=== PATIENT | female | born 1990 | race Two or more races ===

== ENCOUNTER → 2017-12-24 | Emergency (ER) | payer SELFPAY ==
[~2017-12-24] VITALS: Ht 157.5 cm; Wt 63.5 kg
[2017-12-24 08:24] VITALS: BP 145/93
[2017-12-24 08:32] VITALS: BP 145/93
--- NOTE | 2017-12-24 08:44 | Emergency Room Report ---
History of Present Illness General Chief Complaint: Alcohol Intoxication Source: Patient, EMS Present Illness HPI Pt. was at a coffee shop acting "weird" so passerby called 911 and brought in by firefighters. Pt. states she "drank" meth. She is alert and oriented and does not want to stay in ED. Pt. denies any complaint, denies feeling suicidal, homicidal, says she is fine. Denies any psych dz. No recent hosp. no meds. No trauma, no fever, no shortness of breath, no travel history, no leg swelling. no chest pain, no diaphoresis, no exertional complaints, no nausea, no vomiting , no diarrhea, no abdominal pain. Tolerating po fine, normal urinary output, normal bm. No syncope, LOC, dizziness, lightheadedness, headache. No recent surgery. No oral contraceptive use. Allergies: Coded Allergies: DIVALPROEX SODIUM (Verified Allergy, Unknown, 12/24/17) IBUPROFEN (Verified Allergy, Unknown, 12/24/17) TRAMADOL (Verified Allergy, Unknown, 12/24/17) Patient History Last Menstrual Period: 11/20/17 Nursing Documentation-[facility] Past Medical History: No Stated History Review of Systems Constitutional: Reports: no symptoms Eye: Reports: no symptoms ENT: Reports: no symptoms Respiratory: Reports: no symptoms Cardiovascular: Reports: no symptoms Gastrointestinal: Reports: no symptoms Genitourinary: Reports: no symptoms Musculoskeletal: Reports: no symptoms Skin: Reports: no symptoms Psychiatric: Reports: no symptoms Neurological: Reports: no symptoms Endocrine: Reports: no symptoms Hematologic/Lymphatic: Reports: no symptoms Allergic: Reports: no symptoms Physical Exam Vital Signs Date Time Temp Pulse Resp B/P (MAP) Pulse Ox O2 Delivery O2 Flow Rate FiO2 12/24/17 08:03 98.4 115 20 145/93 98 Room Air 98.4 Sp02 EP Interpretation: reviewed, normal General Appearance: normal inspection, well appearing, no apparent distress, alert, GCS 15, non-toxic Head: normocephalic, atraumatic Eyes: bilateral eye normal inspection, bilateral eye PERRL, bilateral eye EOMI ENT: normal ENT inspection, hearing grossly normal, normal pharynx, no angioedema, normal voice, moist mucus membranes Neck: normal inspection, full range of motion, supple, no meningismus, no bony tend Respiratory: normal inspection, lungs clear, normal breath sounds, no rhonchi, no respiratory distress, no retraction, no accessory muscle use, no wheezing Cardiovascular #1: normal inspection, regular rate, rhythm, no edema Gastrointestinal: normal inspection, normal bowel sounds, non tender, soft, no mass, non-distended Musculoskeletal: gait/station normal, normal range of motion Neurologic: normal inspection, alert, oriented x3, responsive, motor strength/ tone normal Psychiatric: normal inspection, judgement/insight normal, memory normal Suicide Risk Assessment: Suicidal Ideation: No Had intent to initiate attempt: No Pt's plan for suicide attempt: No Has means to complete attempt: No Skin: normal inspection, normal color, no rash, warm/dry Medical Decision Making Diagnostic Impression: Primary Impression: Substance abuse ER Course pt ran out of ED dept. says she does not need to be here. she is not holdable, she is not gravely disabled. Last Vital Signs Date Time Temp Pulse Resp B/P (MAP) Pulse Ox O2 Delivery O2 Flow Rate FiO2 12/24/17 08:24 98.4 115 20 145/93 98 Room Air 98.4 Disposition: AGAINST MEDICAL ADVICE Condition: Stable Patient Instructions: Substance Use Disorder Brandon Larsen M.D. Dec 24, 2017 08:44
== END | disposition left against medical advice (07) ==
LOC: EDBD 08:22 → EMR 08:50
DX: F15.10 Other stimulant abuse, uncomplicated (principal); Z88.6 Allergy status to analgesic agent
CPT/HCPCS: 99284

== ENCOUNTER 2018-03-14 12:26 | Emergency (ER) | payer SELFPAY ==
[~2018-03-14] VITALS: Ht 160 cm; Wt 54.4 kg
--- NOTE | 2018-03-14 12:43 | Emergency Room Report ---
History of Present Illness General Chief Complaint: Behavioral Complaint Source: EMS Present Illness HPI Ms. Otero has hx of schizophenia and drug abuse who presents with psychotic behavior. Police was called to [facility] at [facility] and [place]. Patient undressed herself. Began to poor hair dye on head. Erratic behavior walking through the neighborhood. flight deck officer has taken care of patient at least 5 times. She has been on involuntary hold on previous occasion. Patient has pressured speech without intelligible thoughts. Allergies: Coded Allergies: DIVALPROEX SODIUM (Verified Allergy, Unknown, 12/24/17) IBUPROFEN (Verified Allergy, Unknown, 12/24/17) TRAMADOL (Verified Allergy, Unknown, 12/24/17) UNABLE TO ASSESS (Unverified , 03/14/18) Patient History Last Menstrual Period: unknown Nursing Documentation-[facility] Past Medical History: No History, Except For History Of Psychiatric Problem: Yes - Schizophrenia, substance abuse Review of Systems All Other Systems: limited Physical Exam Vital Signs Date Time Temp Pulse Resp B/P (MAP) Pulse Ox O2 Delivery O2 Flow Rate FiO2 03/14/18 12:24 110 20 137/87 99 Room Air Sp02 EP Interpretation: reviewed, normal General Appearance: other - pressured speech agitated Head: normocephalic, atraumatic, other - hair dye covering hair and forehead Eyes: bilateral eye normal inspection, bilateral eye PERRL ENT: moist mucus membranes Neck: full range of motion, supple Respiratory: chest non-tender, lungs clear, normal breath sounds, no rhonchi, no respiratory distress, no retraction, no accessory muscle use Cardiovascular #1: regular rate, rhythm, no edema, no gallop, no JVD, no murmur , no rub Gastrointestinal: normal inspection, normal bowel sounds, non tender, soft, no mass, no organomegaly Neurologic: alert, oriented - x 0 Psychiatric: other - pressured speech agitated screaming loudly Skin: normal inspection, normal color, no rash, warm/dry Medical Decision Making Diagnostic Impression: Primary Impression: Drug psychosis ER Course Ms. Otero has hx of mental illness ?schizophrenia vs bipolar disorder according to career law clerk who is familiar with patient. I appreciate the assistance of Dr. Noyola who evaluated patient. Dr. Noyola gave medication recommendations of haldol, ativan and benadryl. She also recommended physical restraints as needed until patient stabilizes. If patient is lucid and insightful once she awakens from sedation, Ms. Otero is appropriate for discharge according to Dr. Noyola who suspects drug induced psychosis. Patient admitted to methamphetamine use to police records clerk. My colleague will provide appropriate disposition. Last Vital Signs Date Time Temp Pulse Resp B/P (MAP) Pulse Ox O2 Delivery O2 Flow Rate FiO2 03/14/18 12:24 110 20 137/87 99 Room Air Signed Out To: Yolette Kohli MD Mar 14, 2018 12:43
[2018-03-14] MEDS ORDERED: LORazepam Inj 2mg/ml 1ml IM ONE (12:45)
[2018-03-14] MEDS ORDERED: Haloperidol 5mg/ml Inj IM ONE (12:45)
[2018-03-14] MEDS ORDERED: DiphenhydrAMINE 50mg/ml Inj IM ONE (12:45)
[2018-03-14 13:04] LABS: BASOPHILS % (AUTO) 1.3 % (0.0-2.0); EOSINOPHILS % (AUTO) 6.3 % (0.0-3.0); HEMATOCRIT 39.5 % (37.0-47.0); HEMOGLOBIN 13.2 G/DL (12.0-16.0); LYMPHOCYTES % (AUTO) 27.1 % (20.0-45.0); MEAN CORPUSCULAR VOLUME 83 FL (80-99); MONOCYTES % (AUTO) 7.7 % (1.0-10.0); NEUTROPHILS % (AUTO) 57.6 % (45.0-75.0); PLATELET COUNT 423 K/UL (150-450); RED BLOOD COUNT 4.78 M/UL (4.20-5.40); RED CELL DISTRIBUTION WIDTH 12.4 % (11.6-14.8); WHITE BLOOD COUNT 9.3 K/UL (4.8-10.8)
[2018-03-14 13:18] LABS: ANION GAP 11 mmol/L (5-15); BLOOD UREA NITROGEN 19 mg/dL (7-18); CALCIUM 8.8 MG/DL (8.5-10.1); CARBON DIOXIDE 21 MMOL/L (21-32); CHLORIDE 110 MMOL/L (98-107); CREATININE 0.8 MG/DL (0.55-1.30); POTASSIUM 3.7 MMOL/L (3.5-5.1); SODIUM 142 MMOL/L (136-145)
[2018-03-14 13:22] LABS: ALANINE AMINOTRANSFERASE 26 U/L (12-78); ALBUMIN 3.8 G/DL (3.4-5.0); ALBUMIN/GLOBULIN RATIO 1.1 (1.0-2.7); ALKALINE PHOSPHATASE 69 U/L (46-116); ASPARTATE AMINO TRANSFERASE 20 U/L (15-37); BILIRUBIN,TOTAL 0.3 MG/DL (0.2-1.0)
[2018-03-14 15:14] VITALS: BP 131/90
[2018-03-14 17:12] VITALS: BP 112/53
[2018-03-14 18:34] VITALS: BP 154/97
[2018-03-14 22:27] VITALS: BP 136/93
[2018-03-15 05:36] VITALS: BP 130/85
[2018-03-15 06:52] VITALS: BP 125/75
--- NOTE | 2018-03-15 14:15 | Consultation ---
DATE OF CONSULTATION: 03/14/2018 HISTORY OF PRESENT ILLNESS: The patient is a 28-year-old female who presented with psychotic symptoms she was found by the police dyeing her hair with car oil and and she was undressed. The police got her into the emergency room for danger to self. The patient suicidal ideation. No homicidal ideation. The patient is well developed and well nourished. The patient was in her sports bra and shorts. The patient was agitated, yelling, screaming. She admitted that she has been taking meth mixed with alcohol. PAST PSYCHIATRIC HISTORY: She has a history of psychotic disorder and has had psychiatric hospitalization per the officer. PAST MEDICAL HISTORY: None. ALLERGIES: Unknown. SUBSTANCE ABUSE HISTORY: Very extensive for alcohol, crystal meth, and other illicit drug use. MENTAL STATUS EXAMINATION: The patient is alert, however, confused, disoriented, and disorganized. She is not endorsing any suicidal or homicidal ideations. ASSESSMENT: AXIS I Substance-induced psychosis meth. AXIS II Deferred. AXIS III As above. AXIS IV Low. AXIS V 20. PLAN: The patient will be discharged after the . Mehdi Noyola M.D. DR: JENIFER JOB#: [id number] CC:
== END 2018-03-15 06:42 | disposition home or self-care (01) ==
LOC: EDBD 12:26 → EMR 14:53
DX: F19.959 Other psychoactive substance use, unspecified with psychoactive substance-induced psychotic disorder, unspecified (principal); Z78.1 Physical restraint status; F15.90 Other stimulant use, unspecified, uncomplicated
CPT/HCPCS: 36415; 80053; 80307; 81025; 85025; 96360; 96361; 96372; 99284; G0480; J1200; J1630; 80329

== ENCOUNTER 2019-07-09 13:14 | Inpatient (IN) | payer MEDICAID ==
[~2019-07-09] VITALS: Ht 157.5 cm; Wt 66.0 kg
[2019-07-09] VITALS (8 sets, daily range): BP systolic 117–144; BP diastolic 64–96
[2019-07-09] MEDS ORDERED: Metoclopramide 10mg/2ml Inj IVP ONE (13:30)
[2019-07-09] MEDS ORDERED: DiphenhydrAMINE 50mg/ml Inj IVP ONE (13:30)
[2019-07-09] MEDS ORDERED: Morphine Sulfate 4mg/ml Inj (IV USE ONLY) IVP ONE (13:30)
[2019-07-09] MEDS ORDERED: Piperacillin/Tazobactam 3.375 GM in NS 110 ML IVPB ONE (13:30)
--- NOTE | 2019-07-09 13:35 | NUR ---
ED Nurse Note: Pt went to ER via wheelchair d/t inflammed abscess on LT knee. Pt is AOx3, noted to be screaming, crying and appears to be restless DOCUMENT SPECIALIST. Noted HR 135. Placed on bed and gown; hooked to manager cardiac cath.
--- NOTE | 2019-07-09 13:40 | NUR ---
ED Nurse Note: Per pt she was in [facility] 6 days ago for 72 hours d/t DO detoxification; pt stated "i was given antipsychotic medications too. There was already redness on my knee that day but it wasn't as bad as this! It suddenly popped out today and bleed!"
[2019-07-09 13:52] LABS: HEMATOCRIT 36.9 % (37.0-47.0); HEMOGLOBIN 12.8 G/DL (12.0-16.0); MEAN CORPUSCULAR VOLUME 83 FL (80-99); PLATELET COUNT 437 K/UL (150-450); RED BLOOD COUNT 4.46 M/UL (4.20-5.40); RED CELL DISTRIBUTION WIDTH 11.2 % (11.6-14.8); WHITE BLOOD COUNT 20.7 K/UL (4.8-10.8)
[2019-07-09 14:00] LABS: APPEARANCE,URINE CLEAR; BILIRUBIN, URINE NEGATIVE (NEGATIVE); GLUCOSE, URINE (UA) NEGATIVE (NEGATIVE); KETONES,URINE 3+ (NEGATIVE); LEUKOCYTE ESTERASE ,URINE 1+ (NEGATIVE); NITRITE,URINE NEGATIVE (NEGATIVE); PH,URINE 6.5 (4.5-8.0); PROTEIN,URINE 2+ (NEGATIVE); UROBILINOGEN,URINE 4 MG/DL (0.0-1.0)
--- NOTE | 2019-07-09 14:04 | NUR ---
ED Nurse Note: X-ray on bedside.
[2019-07-09 14:13] LABS: COLOR,URINE YELLOW
--- NOTE | 2019-07-09 14:50 | NUR ---
ED Nurse Note: LACTATE REFLEX DONE.
[2019-07-09 14:55] LABS: ANION GAP 10 mmol/L (5-15); BLOOD UREA NITROGEN 16 mg/dL (7-18); CALCIUM 8.3 MG/DL (8.5-10.1); CARBON DIOXIDE 26 MMOL/L (21-32); CHLORIDE 108 MMOL/L (98-107); CREATININE 0.6 MG/DL (0.55-1.30); POTASSIUM 3.3 MMOL/L (3.5-5.1); SODIUM 144 MMOL/L (136-145)
[2019-07-09 15:00] LABS: ALANINE AMINOTRANSFERASE 36 U/L (12-78); ALBUMIN 2.7 G/DL (3.4-5.0); ALBUMIN/GLOBULIN RATIO 0.6 (1.0-2.7); ALKALINE PHOSPHATASE 76 U/L (46-116); ASPARTATE AMINO TRANSFERASE 25 U/L (15-37); BILIRUBIN,TOTAL 0.5 MG/DL (0.2-1.0); CREATINE KINASE 117 U/L (26-308)
--- NOTE | 2019-07-09 15:04 | Emergency Room Report ---
History of Present Illness General Chief Complaint: Lower Extremity Injury Source: Patient Present Illness HPI Patient presents with several days of swelling of her left knee. This is been going on and worsening for at least 6 days. She alleges that she was recently in the hospital. She received Zyprexa and believes that this might be an allergic reaction to the Zyprexa. She denies any trauma to the knee. She has had fevers and chills. She is unable to weight-bear at this time. She is quite anxious at this time. She denies suicidal or homicidal ideation. Patient admits to methamphetamine. She denies IV drug use. She is uncertain if she is at this time. No sore throat, chest pain, nausea, vomiting, diarrhea, dysuria, abdominal pain , shortness of breath, visual changes, dizziness, headache. Allergies: Coded Allergies: DIVALPROEX SODIUM (Verified Allergy, Unknown, 12/24/17) IBUPROFEN (Verified Allergy, Unknown, 12/24/17) TRAMADOL (Verified Allergy, Unknown, 12/24/17) UNABLE TO ASSESS (Unverified , 03/14/18) Patient History Past Medical History: see triage record Social History: Reports: drug use; Denies: smoking, alcohol use Social History Narrative Homeless Now: No Nursing Documentation-[facility] Past Medical History: No Stated History Review of Systems All Other Systems: negative except mentioned in HPI Physical Exam Vital Signs Date Time Temp Pulse Resp B/P (MAP) Pulse Ox O2 Delivery O2 Flow Rate FiO2 07/09/19 13:18 98.8 148 24 128/68 (88) 95 Room Air Sp02 EP Interpretation: reviewed, normal General Appearance: no apparent distress, alert, non-toxic, mild distress - Anxious and in pain, other - Slightly confused Head: normocephalic, atraumatic Eyes: bilateral eye PERRL, bilateral eye EOMI, bilateral eye Scleral Injection ENT: dry mucus membranes Neck: full range of motion, supple Respiratory: lungs clear, normal breath sounds Cardiovascular #1: no edema, tachycardia Cardiovascular #2: 2+ radial (R), 2+ dorsalis pedis (L) Gastrointestinal: normal inspection, normal bowel sounds, non tender, no mass, non-distended Genitourinary: no CVA tenderness Musculoskeletal: back normal, decreased range of motion, no calf tenderness, pelvis stable, tender, swelling Neurologic: alert, oriented, distal neuro normal, grossly normal Psychiatric: no suicidal/homicidal ideation, anxious Skin: warm/dry, other - Erythema left knee with warmth, pus filled lesion prepatellar with pus and blood drainage Medical Decision Making Diagnostic Impression: Primary Impression: Septic joint of left knee joint Qualified Codes: M00.9 - Pyogenic arthritis, unspecified Additional Impressions: Substance abuse Sepsis Qualified Codes: A41.9 - Sepsis, unspecified organism ER Course Patient presents with knee pain and question of possible allergic reaction. Based on her clinical presentation and exam the knee appears to be a septic joint. Evaluation with EKG, knee x-ray and labs. Blood cultures obtained and wound culture obtained. Initially Zosyn ordered until status determined. She admits to methamphetamine use. The tachycardia in part may be related to this. However we need to evaluate for possible sepsis. Fluid bolus ordered. As the patient denies IV drug use bacterial endocarditis is less likely. EKG sinus tachycardia without injury. Knee film with effusion and soft tissue swelling. Leukocytosis, left shift. CMP unremarkable. Elevated sedimentation rate. Initial lactic acid 2.4. Minimal hypokalemia. Minimal pyuria. Tox screen positive for amphetamine and THC. Sepsis reevaluation 1314. Mentation improved. Tachycardia slightly improved. Capillary refill normal. Antibiotics and beginning of fluid bolus started. The rest of 30 mill per kilogram bolus is ordered. Antibiotics broadened with negative test to include vancomycin. Contact Dr. Lopez for admission. Contact Dr. Rojas for consultation. Discussion with Dr. Rojas regarding taking the patient to the operating room. Patient improved but anxious. Admitted to telemetry with condition serious. Laboratory Tests Test 07/09/19 13:17 07/09/19 13:41 07/09/19 13:45 07/09/19 14:20 White Blood Count 20.7 K/UL (4.8-10.8) H Red Blood Count 4.46 M/UL (4.20-5.40) Hemoglobin 12.8 G/DL (12.0-16.0) Hematocrit 36.9 % (37.0-47.0) L Mean Corpuscular Volume 83 FL (80-99) Mean Corpuscular Hemoglobin 28.8 PG (27.0-31.0) Mean Corpuscular Hemoglobin Concent 34.8 G/DL (32.0-36.0) Red Cell Distribution Width 11.2 % (11.6-14.8) L Platelet Count 437 K/UL (150-450) Mean Platelet Volume 5.5 FL (6.5-10.1) L Neutrophils (%) (Auto) % (45.0-75.0) Lymphocytes (%) (Auto) % (20.0-45.0) Monocytes (%) (Auto) % (1.0-10.0) Eosinophils (%) (Auto) % (0.0-3.0) Basophils (%) (Auto) % (0.0-2.0) Differential Total Cells Counted 100 Neutrophils % (Manual) 90 % (45-75) H Lymphocytes % (Manual) 5 % (20-45) L Monocytes % (Manual) 5 % (1-10) Eosinophils % (Manual) 0 % (0-3) Basophils % (Manual) 0 % (0-2) Band Neutrophils 0 % (0-8) Platelet Estimate Adequate Platelet Morphology Normal Red Blood Cell Morphology Normal Erythrocyte Sedimentation Rate 85 MM/HR (0-20) H Prothrombin Time 11.0 SEC (9.30-11.50) Prothrombin Time INR 1.0 (0.9-1.1) Activated Partial Thromboplast Time 39 SEC (23-33) H Lactic Acid Level 2.40 mmol/L (0.4-2.0) H Urine Color Yellow Urine Appearance Clear Urine pH 6.5 (4.5-8.0) Urine Specific [place] 1.010 (1.005-1.035) Urine Protein 2+ (NEGATIVE) H Urine Glucose (UA) Negative (NEGATIVE) Urine Ketones 3+ (NEGATIVE) H Urine Blood Negative (NEGATIVE) Urine Nitrite Negative (NEGATIVE) Urine Bilirubin Negative (NEGATIVE) Urine Urobilinogen 4 MG/DL (0.0-1.0) H Urine Leukocyte Esterase 1+ (NEGATIVE) H Urine RBC 0-2 /HPF (0 - 2) Urine WBC 5-10 /HPF (0 - 2) H Urine Squamous Epithelial Cells Few /LPF (NONE/OCC) Urine Bacteria Few /HPF (NONE) Urine Mucus Few /LPF (NONE/OCC) H Urine Opiates Screen Negative (NEGATIVE) Urine Barbiturates Screen Negative (NEGATIVE) Phencyclidine (PCP) Screen Negative (NEGATIVE) Urine Amphetamines Screen Positive (NEGATIVE) H Urine Benzodiazepines Screen Negative (NEGATIVE) Urine Cocaine Screen Negative (NEGATIVE) Urine Marijuana (THC) Screen Positive (NEGATIVE) H Urine HCG, Qualitative Negative (NEGATIVE) Sodium Level 144 MMOL/L (136-145) Potassium Level 3.3 MMOL/L (3.5-5.1) L Chloride Level 108 MMOL/L (98-107) H Carbon Dioxide Level 26 MMOL/L (21-32) Anion Gap 10 mmol/L (5-15) Blood Urea Nitrogen 16 mg/dL (7-18) Creatinine 0.6 MG/DL (0.55-1.30) Estimate Glomerular Filtration Rate > 60 mL/min (>60) Glucose Level 105 MG/DL (74-106) Calcium Level 8.3 MG/DL (8.5-10.1) L Magnesium Level 1.7 MG/DL (1.8-2.4) L Total Bilirubin 0.5 MG/DL (0.2-1.0) Aspartate Amino Transferase (AST) 25 U/L (15-37) Alanine Aminotransferase (ALT) 36 U/L (12-78) Alkaline Phosphatase 76 U/L (46-116) Total Creatine Kinase 117 U/L (26-308) Troponin I 0.000 ng/mL (0.000-0.056) Total Protein 7.2 G/DL (6.4-8.2) Albumin 2.7 G/DL (3.4-5.0) L Globulin 4.5 g/dL Albumin/Globulin Ratio 0.6 (1.0-2.7) L Test 07/09/19 14:50 Lactic Acid Level 1.30 mmol/L (0.66-2.22) EKG Diagnostic Results Rate: tachycardiac Rhythm: NSR ST Segments: no acute changes Rhythm Strip Diag. Results EP Interpretation: yes Rhythm: no PVC's, no ectopy, other - This tachycardia Chest X-Ray Diagnostic Results Chest X-Ray Diagnostic Results : Chest X-Ray Ordered: Yes # of Views/Limited/Complete: 1 View Indication: Other EP Interpretation: Yes Interpretation: no consolidation, no effusion, no pneumothorax Impression: No acute disease Electronically Signed by: Electronically signed by Howard Negrete MD Other X-Ray Diagnostic Results Other X-Ray Diagnostic Results : X-Ray ordered: Left knee # of Views/Limited Vs Complete: 3 View Indication: Other EP Interpretation: Yes Interpretation: no dislocation, no fractures, other - Effusion and soft tissue swelling Impression: Other Electronically Signed by: Electronically signed by Howard Negrete MD Last Vital Signs Date Time Temp Pulse Resp B/P (MAP) Pulse Ox O2 Delivery O2 Flow Rate FiO2 07/09/19 22:40 127 15 138/95 100 Nasal Cannula 3 07/09/19 22:20 97.9 Status: improved Disposition: ADMITTED INPATIENT Condition: Serious Scripts No Active Prescriptions or Reported Meds Referrals: NOT CHOSEN IPA/,REFERRING (PCP) Howard Negrete MD Jul 09, 2019 15:04
[2019-07-09] MEDS ORDERED: Vancomycin 1 GM in NS 275 ML IVPB ONE (15:15)
--- NOTE | 2019-07-09 15:38 | Diagnostic Imaging Report ---
Indication: Dyspnea Comparison: None A single view chest radiograph was obtained. Findings: Cardiomediastinal appearance is within normal limits for age. The lungs are clear. Pulmonary vascularity is appropriate. The diaphragmatic contour is smooth and costophrenic angles are sharp. No pleural effusions are identified. The bones are unremarkable. Impression: No acute findings
--- NOTE | 2019-07-09 15:38 | Diagnostic Imaging Report ---
INDICATION: Knee Pain COMPARISON: None 3 views of the left knee were obtained. FINDINGS: No acute fracture, malalignment, or joint effusion are identified. There is moderate subcutaneous edema and localized soft tissue swelling especially in the anterior part of the knee. Impression: Negative for acute fracture. Moderate soft tissue swelling
--- NOTE | 2019-07-09 15:47 | NUR ---
TRANSFER TO FLOOR: Patient transferred to [facility] as ordered, per DR. DAVIS. Report given to KRISTEL DICKERSON. Belongings and medications given to receiving nurse. Family and or S/O informed of transfer.
--- NOTE | 2019-07-09 16:15 | NUR ---
NURSE NOTES: Patient arrived on unit via gurney, transferred to hospital bed with 1 person assist without incident. Patient is stable, AAOx4, denies pain or SOB. Patient oriented to unit, room, and call light. Patient instructed to use call light for assistance, verbalized understanding. Patient appears anxious and nervous. Patient's left radial pulse rapid and regular. Calming measures provided. Patient states that she uses street drugs regularly and feels nervous at the moment. Patient's belongings at bedside. Patient's left knee is draining red/bloody output. Patient c/o pain upon palpation. Surrounding area is warm and edematous. Patient states the pain started 6 days ago out of nowhere. Dr. Lopez notified of admission. Admission orders read back and carried out. Patient's skin is otherwise intact. Patient is in bed in locked and lowest position with call light within reach. All safety measures provided. Will continue to monitor.
[2019-07-09] MEDS ORDERED: Morphine Sulfate 2mg/ml Inj(IV/IM USE ONLY) IVP PRN (16:45)
--- NOTE | 2019-07-09 17:38 | NUR ---
NURSE NOTES:WOUND CARE NOTES:Pt presented on admission with Erythema and swelling of L knee extending into posterior L knee . Large blood filled and pustular pocket noted at patella which is oozing moderate amts of sanguineous exudate. Pt denied falling and denied bumping her knee . Pt stated Knee started to swell four days prior.Cleaned with Betadine . Covered with ABD pads and wrapped with Kerlix and elevated with pillow.
--- NOTE | 2019-07-09 17:47 | Consultation ---
History of Present Illness General Date patient seen: Jul 09, 2019 Chief Complaint: Lower Extremity Injury Present Illness HPI 29 y/o F with xh of presented to ED on 07/09 with 4 days of worsening L knee redness and pain. She was recently at [facility] for drug intoxication. Patient afebrile, tachycardic and leukocytosis up to 20. Allergies: Coded Allergies: DIVALPROEX SODIUM (Verified Allergy, Unknown, 12/24/17) IBUPROFEN (Verified Allergy, Unknown, 12/24/17) TRAMADOL (Verified Allergy, Unknown, 12/24/17) UNABLE TO ASSESS (Unverified , 03/14/18) Medication History No Active Prescriptions or Reported Meds Patient History Healthcare decision maker Resuscitation status Advanced Directive on File Patient History Narrative Pmhx: as above Shx: reviewed Fhx: non contributory Physical Exam Last 24 Hour Vital Signs Date Time Temp Pulse Resp B/P (MAP) Pulse Ox O2 Delivery O2 Flow Rate FiO2 07/09/19 15:47 98.8 137 19 130/68 98 Room Air 07/09/19 13:58 98.8 07/09/19 13:18 98.8 148 24 128/68 (88) 95 Room Air Laboratory Tests Test 07/09/19 13:17 07/09/19 13:41 07/09/19 13:45 07/09/19 14:20 White Blood Count 20.7 K/UL (4.8-10.8) H Red Blood Count 4.46 M/UL (4.20-5.40) Hemoglobin 12.8 G/DL (12.0-16.0) Hematocrit 36.9 % (37.0-47.0) L Mean Corpuscular Volume 83 FL (80-99) Mean Corpuscular Hemoglobin 28.8 PG (27.0-31.0) Mean Corpuscular Hemoglobin Concent 34.8 G/DL (32.0-36.0) Red Cell Distribution Width 11.2 % (11.6-14.8) L Platelet Count 437 K/UL (150-450) Mean Platelet Volume 5.5 FL (6.5-10.1) L Neutrophils (%) (Auto) % (45.0-75.0) Lymphocytes (%) (Auto) % (20.0-45.0) Monocytes (%) (Auto) % (1.0-10.0) Eosinophils (%) (Auto) % (0.0-3.0) Basophils (%) (Auto) % (0.0-2.0) Differential Total Cells Counted 100 Neutrophils % (Manual) 90 % (45-75) H Lymphocytes % (Manual) 5 % (20-45) L Monocytes % (Manual) 5 % (1-10) Eosinophils % (Manual) 0 % (0-3) Basophils % (Manual) 0 % (0-2) Band Neutrophils 0 % (0-8) Platelet Estimate Adequate Platelet Morphology Normal Red Blood Cell Morphology Normal Erythrocyte Sedimentation Rate 85 MM/HR (0-20) H Prothrombin Time 11.0 SEC (9.30-11.50) Prothromb Time International Ratio 1.0 (0.9-1.1) Activated Partial Thromboplast Time 39 SEC (23-33) H Lactic Acid Level 2.40 mmol/L (0.4-2.0) H Urine Color Yellow Urine Appearance Clear Urine pH 6.5 (4.5-8.0) Urine Specific [place] 1.010 (1.005-1.035) Urine Protein 2+ (NEGATIVE) H Urine Glucose (UA) Negative (NEGATIVE) Urine Ketones 3+ (NEGATIVE) H Urine Blood Negative (NEGATIVE) Urine Nitrite Negative (NEGATIVE) Urine Bilirubin Negative (NEGATIVE) Urine Urobilinogen 4 MG/DL (0.0-1.0) H Urine Leukocyte Esterase 1+ (NEGATIVE) H Urine RBC 0-2 /HPF (0 - 2) Urine WBC 5-10 /HPF (0 - 2) H Urine Squamous Epithelial Cells Few /LPF (NONE/OCC) Urine Bacteria Few /HPF (NONE) Urine Mucus Few /LPF (NONE/OCC) H Urine Opiates Screen Negative (NEGATIVE) Urine Barbiturates Screen Negative (NEGATIVE) Phencyclidine (PCP) Screen Negative (NEGATIVE) Urine Amphetamines Screen Positive (NEGATIVE) H Urine Benzodiazepines Screen Negative (NEGATIVE) Urine Cocaine Screen Negative (NEGATIVE) Urine Marijuana (THC) Screen Positive (NEGATIVE) H Urine HCG, Qualitative Negative (NEGATIVE) Sodium Level 144 MMOL/L (136-145) Potassium Level 3.3 MMOL/L (3.5-5.1) L Chloride Level 108 MMOL/L (98-107) H Carbon Dioxide Level 26 MMOL/L (21-32) Anion Gap 10 mmol/L (5-15) Blood Urea Nitrogen 16 mg/dL (7-18) Creatinine 0.6 MG/DL (0.55-1.30) Estimat Glomerular Filtration Rate > 60 mL/min (>60) Glucose Level 105 MG/DL (74-106) Calcium Level 8.3 MG/DL (8.5-10.1) L Magnesium Level 1.7 MG/DL (1.8-2.4) L Total Bilirubin 0.5 MG/DL (0.2-1.0) Aspartate Amino Transf (AST/SGOT) 25 U/L (15-37) Alanine Aminotransferase (ALT/SGPT) 36 U/L (12-78) Alkaline Phosphatase 76 U/L (46-116) Total Creatine Kinase 117 U/L (26-308) Troponin I 0.000 ng/mL (0.000-0.056) Total Protein 7.2 G/DL (6.4-8.2) Albumin 2.7 G/DL (3.4-5.0) L Globulin 4.5 g/dL Albumin/Globulin Ratio 0.6 (1.0-2.7) L Test 07/09/19 14:50 Lactic Acid Level 1.30 mmol/L (0.66-2.22) Height (Feet): 5 Height (Inches): 2.00 Weight (Pounds): 127 Medications Current Medications Medications (Trade) Dose Ordered Sig/Hemalatha Route PRN Reason Start Time Stop Time Status Last Admin Dose Admin Dextrose/Sodium Chloride 1,000 ml @ 60 mls/hr [id number] IV 07/09/19 17:00 08/08/19 16:59 Diphenhydramine HCl (Benadryl) 50 mg Q6H PRN ORAL Itching 07/09/19 16:45 08/08/19 16:44 Heparin Sodium (Porcine) (Heparin 5000 units/ml) 5,000 units EVERY 12 HOURS SUBQ 07/09/19 21:00 08/08/19 20:59 Morphine Sulfate (Morphine Sulfate) 2 mg Q4H PRN IVP For Pain 07/09/19 16:45 07/16/19 16:44 Ondansetron HCl (Zofran ODT) 4 mg QID PRN ORAL Nausea & Vomiting 07/09/19 16:45 08/08/19 16:44 Assessment/Plan Assessment/Plan: Abx: IV Vancomycin x1 07/09 Zosyn x1 07/09 Assessment: Sepsis L knee erythema- septic bursitis and probable septic arthritis -Xray: Negative for acute fracture. Moderate soft tissue swelling -CXR: No acute findings -ESR 85 Afebrile Leukocytosis Drug intoxication -UDS +amphetamine, THC Plan: -Continue empiric IV Vancomycin #1 and start Cefepime -f/u cx -Monitor CBC/CMP, temperatures -CRP am -agree with L knee I+D tonight as infection severe and risk for worsening sepsis -send cultures at time of I+D -cx obtained from bloody purulent drainage Thank you for this consultation. Will continue to follow along with you. Discussed with Saumya Sanderson M.D. Jul 09, 2019 17:47
[2019-07-09] MEDS: D5 1/2NS 1,000 ML IV SCH (18:04)
--- NOTE | 2019-07-09 18:30 | NUR ---
NURSE NOTES: Wound culture of left knee sent down to lab.
[2019-07-09] MEDS ORDERED: LORazepam 1mg tab ORAL PRN (19:00)
[2019-07-09] MEDS ORDERED: Vancomycin 1.25gm/NS Premix IVPB ONE (19:30)
--- NOTE | 2019-07-09 19:42 | NUR ---
HAND-OFF: Report given to Berenice DICKERSON. patient is stable.
--- NOTE | 2019-07-09 19:42 | NUR ---
NURSE NOTES: Received patient on bed, awake. no sob. with noted intact dressing on the left knee. no noted drainage or bleeding on the dressing.reiterated that she's on NPO. bed locked and in lowest position.call light and light button within easy reach. will continue plan of care.
--- NOTE | 2019-07-09 19:45 | NUR ---
NURSE NOTES: patient was picked up by the transporter to the OR in stable condition. not in any form of distress. charge nurse made aware.
[2019-07-09] MEDS ORDERED: Bacitracin 50000 Units Vial ONE (20:23)
[2019-07-09] MEDS ORDERED: NeoSporin Gu Irrig 1ml Amp IRRIG ONE (20:23)
[2019-07-09] MEDS ORDERED: NS Irrig 2000ml IRRIG ONE (21:00)
[2019-07-09] MEDS ORDERED: Cefepime HCl 1 GM in D5W 55 ML IVPB SCH (21:00)
[2019-07-09] MEDS ORDERED: LR 1000ml ONE (21:00)
[2019-07-09] MEDS: Heparin 5000 units/ml inj SUBQ SCH (21:00)
[2019-07-09] MEDS ORDERED: fentaNYL 100 mcg/2 mL IV ONE ×3 (21:18→21:41)
--- NOTE | 2019-07-09 21:20 | Pre-Procedure Note/Attestation ---
Pre-Procedure Note/Attestation Complete Prior to Procedure Planned Procedure: left Procedure Narrative: Left knee arthroscopic washout and pre-patellar bursal irrigation and debridement. Indications for Procedure Pre-Operative Diagnosis: Left knee septic bursitis and arthritis Attestation I attest that I discussed the nature of the procedure; its benefits; risks and complications; and alternatives (and the risks and benefits of such alternatives ), prior to the procedure, with the patient (or the patient's legal sales representative rural [employer]). I attest that, if there was a reasonable possibility of needing a blood transfusion, the patient (or the patient's legal sales representative rural [employer]) was given the [facility] standardized written summary, pursuant to the [place] Blood Safety Act ([place] Health and Safety Code # 1645, as amended). I attest that I re-evaluated the patient just prior to the surgery and that there has been no change in the patient's H&P, except as documented below: Howard Rojas MD Jul 09, 2019 21:20
[2019-07-09] MEDS ORDERED: Morphine Sulfate 10mg/ml Inj ONE ×2 (21:23→21:29)
--- NOTE | 2019-07-09 21:25 | Consultation ---
History of Present Illness General Date patient seen: Jul 09, 2019 Time patient seen: 19:30 Chief Complaint: Lower Extremity Injury Reason for Consultation: Left knee septic arthritis and bursitis Present Illness HPI 29 year old drug user (meth and marijuana) in [facility] for 3 days and did "not like the treatment." Developed left knee pain and swelling and redness and warmth and reported to ED at [facility] [place] with a diagnosis of septic arthritis. Allergies: Coded Allergies: DIVALPROEX SODIUM (Verified Allergy, Unknown, 12/24/17) IBUPROFEN (Verified Allergy, Unknown, 12/24/17) TRAMADOL (Verified Allergy, Unknown, 12/24/17) UNABLE TO ASSESS (Unverified , 03/14/18) Medication History No Active Prescriptions or Reported Meds Patient History Healthcare decision maker Janki Otero Resuscitation status Full Code Advanced Directive on File No Review of Systems Constitutional: Denies: no symptoms, see HPI, chills, sweats, fever, malaise, weakness, other Eye: Denies: no symptoms, see HPI, eye pain, blurred vision, tearing, double vision, nose pain, nose congestion, acuity changes, discharge, other ENT: Denies: no symptoms, see HPI, ear pain, ear discharge, nose pain, nose congestion, throat pain, throat swelling, mouth pain, hearing loss, nasal discharge, other Respiratory: Denies: no symptoms, see HPI, cough, orthopnea, shortness of breath, stridor, wheezing, DELANEY, sputum, other Cardiovascular: Denies: no symptoms, see HPI, chest pain, edema, palpitations, syncope, PND, other Gastrointestinal: Denies: no symptoms, see HPI, abdominal pain, constipation, diarrhea, nausea, vomiting, melena, hematemesis, other Genitourinary: Denies: no symptoms, see HPI, discharge, dysuria, frequency, hematuria, pain, retention, incontinence, urgency, vag bleed/dc, other Musculoskeletal: Denies: no symptoms, see HPI, back pain, gout, joint pain, joint swelling, muscle pain, muscle stiffness, other Skin: Denies: no symptoms, see HPI, rash, change in color, change in hair/nails , dryness, lesions, other Psychiatric: Denies: no symptoms, see HPI, prior hx, anxiety, depressed feelings, emotional problems, SI, HI, hallucinations, other Neurological: Denies: no symptoms, see HPI, headache, numbness, paresthesia, seizure, tingling, tremors, focal weakness, syncope, dizziness, other Endocrine: Denies: no symptoms, see HPI, excessive sweating, flushing, intolerance to temperature, increased thirst, increased urine, unexplained weight loss, other Hematologic/Lymphatic: Denies: no symptoms, see HPI, anemia, blood clots, easy bleeding, easy bruising, swollen glands, diathesis, other All Other Systems: negative except mentioned in HPI Physical Exam Extremities: other - Left knee draining septic prepatella bursitis and knee effusion with pain with all ROM Last 24 Hour Vital Signs Date Time Temp Pulse Resp B/P (MAP) Pulse Ox O2 Delivery O2 Flow Rate FiO2 07/09/19 16:33 Room Air 07/09/19 16:30 99.4 136 18 123/84 (97) 100 07/09/19 15:47 98.8 137 19 130/68 98 Room Air 07/09/19 13:58 98.8 07/09/19 13:18 98.8 148 24 128/68 (88) 95 Room Air Laboratory Tests Test 07/09/19 13:17 07/09/19 13:41 07/09/19 13:45 07/09/19 14:20 White Blood Count 20.7 K/UL (4.8-10.8) H Red Blood Count 4.46 M/UL (4.20-5.40) Hemoglobin 12.8 G/DL (12.0-16.0) Hematocrit 36.9 % (37.0-47.0) L Mean Corpuscular Volume 83 FL (80-99) Mean Corpuscular Hemoglobin 28.8 PG (27.0-31.0) Mean Corpuscular Hemoglobin Concent 34.8 G/DL (32.0-36.0) Red Cell Distribution Width 11.2 % (11.6-14.8) L Platelet Count 437 K/UL (150-450) Mean Platelet Volume 5.5 FL (6.5-10.1) L Neutrophils (%) (Auto) % (45.0-75.0) Lymphocytes (%) (Auto) % (20.0-45.0) Monocytes (%) (Auto) % (1.0-10.0) Eosinophils (%) (Auto) % (0.0-3.0) Basophils (%) (Auto) % (0.0-2.0) Differential Total Cells Counted 100 Neutrophils % (Manual) 90 % (45-75) H Lymphocytes % (Manual) 5 % (20-45) L Monocytes % (Manual) 5 % (1-10) Eosinophils % (Manual) 0 % (0-3) Basophils % (Manual) 0 % (0-2) Band Neutrophils 0 % (0-8) Platelet Estimate Adequate Platelet Morphology Normal Red Blood Cell Morphology Normal Erythrocyte Sedimentation Rate 85 MM/HR (0-20) H Prothrombin Time 11.0 SEC (9.30-11.50) Prothromb Time International Ratio 1.0 (0.9-1.1) Activated Partial Thromboplast Time 39 SEC (23-33) H Lactic Acid Level 2.40 mmol/L (0.4-2.0) H Urine Color Yellow Urine Appearance Clear Urine pH 6.5 (4.5-8.0) Urine Specific [place] 1.010 (1.005-1.035) Urine Protein 2+ (NEGATIVE) H Urine Glucose (UA) Negative (NEGATIVE) Urine Ketones 3+ (NEGATIVE) H Urine Blood Negative (NEGATIVE) Urine Nitrite Negative (NEGATIVE) Urine Bilirubin Negative (NEGATIVE) Urine Urobilinogen 4 MG/DL (0.0-1.0) H Urine Leukocyte Esterase 1+ (NEGATIVE) H Urine RBC 0-2 /HPF (0 - 2) Urine WBC 5-10 /HPF (0 - 2) H Urine Squamous Epithelial Cells Few /LPF (NONE/OCC) Urine Bacteria Few /HPF (NONE) Urine Mucus Few /LPF (NONE/OCC) H Urine Opiates Screen Negative (NEGATIVE) Urine Barbiturates Screen Negative (NEGATIVE) Phencyclidine (PCP) Screen Negative (NEGATIVE) Urine Amphetamines Screen Positive (NEGATIVE) H Urine Benzodiazepines Screen Negative (NEGATIVE) Urine Cocaine Screen Negative (NEGATIVE) Urine Marijuana (THC) Screen Positive (NEGATIVE) H Urine HCG, Qualitative Negative (NEGATIVE) Sodium Level 144 MMOL/L (136-145) Potassium Level 3.3 MMOL/L (3.5-5.1) L Chloride Level 108 MMOL/L (98-107) H Carbon Dioxide Level 26 MMOL/L (21-32) Anion Gap 10 mmol/L (5-15) Blood Urea Nitrogen 16 mg/dL (7-18) Creatinine 0.6 MG/DL (0.55-1.30) Estimat Glomerular Filtration Rate > 60 mL/min (>60) Glucose Level 105 MG/DL (74-106) Calcium Level 8.3 MG/DL (8.5-10.1) L Magnesium Level 1.7 MG/DL (1.8-2.4) L Total Bilirubin 0.5 MG/DL (0.2-1.0) Aspartate Amino Transf (AST/SGOT) 25 U/L (15-37) Alanine Aminotransferase (ALT/SGPT) 36 U/L (12-78) Alkaline Phosphatase 76 U/L (46-116) Total Creatine Kinase 117 U/L (26-308) Troponin I 0.000 ng/mL (0.000-0.056) Total Protein 7.2 G/DL (6.4-8.2) Albumin 2.7 G/DL (3.4-5.0) L Globulin 4.5 g/dL Albumin/Globulin Ratio 0.6 (1.0-2.7) L Test 07/09/19 14:50 Lactic Acid Level 1.30 mmol/L (0.66-2.22) Height (Feet): 5 Height (Inches): 2.00 Weight (Pounds): 127 Medications Current Medications Medications (Trade) Dose Ordered Sig/Hemalatha Route PRN Reason Start Time Stop Time Status Last Admin Dose Admin Cefepime HCl 1 gm/ Dextrose 55 ml @ 110 mls/hr EVERY 12 HOURS IVPB 07/09/19 21:00 07/16/19 20:59 Dextrose/Sodium Chloride 1,000 ml @ 60 mls/hr [id number] IV 07/09/19 17:00 08/08/19 16:59 07/09/19 18:04 Diphenhydramine HCl (Benadryl) 50 mg Q6H PRN ORAL Itching 07/09/19 16:45 08/08/19 16:44 Heparin Sodium (Porcine) (Heparin 5000 units/ml) 5,000 units EVERY 12 HOURS SUBQ 07/09/19 21:00 08/08/19 20:59 Lorazepam (Ativan) 1 mg Q6H PRN ORAL For Anxiety 07/09/19 19:00 2/7/20 18:59 Morphine Sulfate (Morphine Sulfate) 2 mg Q4H PRN IVP For Pain 07/09/19 16:45 07/16/19 16:44 Ondansetron HCl (Zofran ODT) 4 mg QID PRN ORAL Nausea & Vomiting 07/09/19 16:45 08/08/19 16:44 Vancomycin HCl (Vanco rx to dose) 1 ea DAILY PRN MISC Per rx protocol 07/09/19 17:45 08/08/19 17:44 Vancomycin HCl 1 gm/Dextrose 275 ml @ 183.708 mls/hr Q12H IVPB 07/10/19 06:00 07/15/19 05:59 Assessment/Plan Status Narrative Left knee septic bursitis and arthritis Assessment/Plan: 29 year old with left knee septic bursitis and arthritis for whom I have recommended immediate I & D and washout. She understands all associated risks and the risk of future issues with the left knee. She has consented to all necessary treatment and understands all alternatives. All her questions were answered in great detail. Howard Rojas MD Jul 09, 2019 21:25
[2019-07-09] MEDS ORDERED: Morphine Sulfate PF 10 ML ONE ×2 (21:41→21:42)
--- NOTE | 2019-07-09 22:13 | Immediate Post-Op Evaluation ---
Immediate Post-Op Evalulation Immediate Post-Op Evalulation Procedure: IND LEFT KNEE Date of Evaluation: Jul 09, 2019 Time of Evaluation: 22:13 Nausea: No Vomiting: No Ama Jauregui MD Jul 09, 2019 22:13
--- NOTE | 2019-07-09 22:13 | Anethesia Preoperative Eval ---
Anesthesia Pre-op PMH/ROS General Date of Evaluation: Jul 09, 2019 Time of Evaluation: 21:00 ASA Score: ASA 4 Mallampati Score Class I : Soft palate, uvula, fauces, pillars visible Class II: Soft palate, uvula, fauces visible Class III: Soft palate, base of uvula visible Class IV: Only hard plate visible Mallampati Classification: Class I Allergies: Coded Allergies: DIVALPROEX SODIUM (Verified Allergy, Unknown, 12/24/17) IBUPROFEN (Verified Allergy, Unknown, 12/24/17) TRAMADOL (Verified Allergy, Unknown, 12/24/17) UNABLE TO ASSESS (Unverified , 03/14/18) Patient NPO?: Yes NPO Date: Jul 09, 2019 NPO Time: 190 Anesthesia Pre-op Phys. Exam Physician Exam Last Vital Signs Date Time Temp Pulse Resp B/P (MAP) Pulse Ox O2 Delivery O2 Flow Rate FiO2 07/09/19 20:00 99.8 137 19 117/64 (81) 97 07/09/19 16:33 Room Air Airway Exam Mallampati Score: Class I Anesthesia Pre-op A/P Labs Hematology Test 07/09/19 13:17 White Blood Count 20.7 K/UL (4.8-10.8) H Red Blood Count 4.46 M/UL (4.20-5.40) Hemoglobin 12.8 G/DL (12.0-16.0) Hematocrit 36.9 % (37.0-47.0) L Mean Corpuscular Volume 83 FL (80-99) Mean Corpuscular Hemoglobin 28.8 PG (27.0-31.0) Mean Corpuscular Hemoglobin Concent 34.8 G/DL (32.0-36.0) Red Cell Distribution Width 11.2 % (11.6-14.8) L Platelet Count 437 K/UL (150-450) Mean Platelet Volume 5.5 FL (6.5-10.1) L Neutrophils (%) (Auto) % (45.0-75.0) Lymphocytes (%) (Auto) % (20.0-45.0) Monocytes (%) (Auto) % (1.0-10.0) Eosinophils (%) (Auto) % (0.0-3.0) Basophils (%) (Auto) % (0.0-2.0) Differential Total Cells Counted 100 Neutrophils % (Manual) 90 % (45-75) H Lymphocytes % (Manual) 5 % (20-45) L Monocytes % (Manual) 5 % (1-10) Eosinophils % (Manual) 0 % (0-3) Basophils % (Manual) 0 % (0-2) Band Neutrophils 0 % (0-8) Platelet Estimate Adequate Platelet Morphology Normal Red Blood Cell Morphology Normal Erythrocyte Sedimentation Rate 85 MM/HR (0-20) H Coagulation Test 07/09/19 13:17 Prothrombin Time 11.0 SEC (9.30-11.50) Prothromb Time International Ratio 1.0 (0.9-1.1) Activated Partial Thromboplast Time 39 SEC (23-33) H Chemistry Test 07/09/19 13:17 07/09/19 14:20 07/09/19 14:50 Lactic Acid Level 2.40 mmol/L (0.4-2.0) H 1.30 mmol/L (0.66-2.22) Sodium Level 144 MMOL/L (136-145) Potassium Level 3.3 MMOL/L (3.5-5.1) L Chloride Level 108 MMOL/L (98-107) H Carbon Dioxide Level 26 MMOL/L (21-32) Anion Gap 10 mmol/L (5-15) Blood Urea Nitrogen 16 mg/dL (7-18) Creatinine 0.6 MG/DL (0.55-1.30) Estimat Glomerular Filtration Rate > 60 mL/min (>60) Glucose Level 105 MG/DL (74-106) Calcium Level 8.3 MG/DL (8.5-10.1) L Magnesium Level 1.7 MG/DL (1.8-2.4) L Total Bilirubin 0.5 MG/DL (0.2-1.0) Aspartate Amino Transf (AST/SGOT) 25 U/L (15-37) Alanine Aminotransferase (ALT/SGPT) 36 U/L (12-78) Alkaline Phosphatase 76 U/L (46-116) Total Creatine Kinase 117 U/L (26-308) Troponin I 0.000 ng/mL (0.000-0.056) Total Protein 7.2 G/DL (6.4-8.2) Albumin 2.7 G/DL (3.4-5.0) L Globulin 4.5 g/dL Albumin/Globulin Ratio 0.6 (1.0-2.7) L Urine Test Test 07/09/19 13:45 Urine HCG, Qualitative Negative (NEGATIVE) Ama Jauregui MD Jul 09, 2019 22:13
[2019-07-09] MEDS ORDERED: Hydromorphone 0.5mg/0.5ml inj IVP PRN ×2 (22:15→22:45)
--- NOTE | 2019-07-09 23:15 | Operative Note - Dictated ---
DATE OF OPERATION: 07/09/2019 SURGEON: Howard Rojas M.D. MEDICINE TEACHER: None. ANESTHESIA: General. COMPLICATIONS: None. ANTIBIOTICS: Vancomycin. PREOPERATIVE DIAGNOSES: 1. Left knee prepatellar septic bursitis. 2. Left knee septic arthritis. POSTOPERATIVE DIAGNOSIS: Left knee prepatellar septic bursitis. OPERATIONS PERFORMED: 1. Left knee prepatellar bursa irrigation and debridement with 6 liters of antibiotic impregnated fluid. 2. Left knee prepatellar bursal wound VAC application. 3. Left knee intraarticular joint aspiration. BACKGROUND: The patient developed left knee infection. It is unclear the etiology. The presumptive diagnosis was septic arthritis and septic prepatellar bursitis. There was draining purulence from an open wound from the bursa. Immediate operative intervention was warranted and recommended. All risks, benefits, and alternatives were discussed in great detail. Risks included, but were not limited to, bleeding, infection, neurovascular injury, need for additional surgical intervention, failure of pain relief, arthrofibrosis, complications of anesthesia, blood clots, stroke, heart attack, and potentially . She understood these risks, amongst others, and consent was signed. PROCEDURE IN DETAIL: The patient was brought into the operating room, placed supine on the operating table. The left knee was correctly verified for surgical site and prepped and draped in standard sterile fashion. Examination under anesthesia revealed a large purulent draining prepatellar bursa and trace effusion in the intra-articular space. An incision was created over the draining prepatellar bursa and approximately 75 mL of pus was evacuated. Finger sweep revealed no communication with the intra-articular space. 6 liters of antibiotic impregnated fluid was washed through the wound and a wound VAC was applied. Through the superomedial aspect of the knee, where the prepatellar septic bursitis did not extend, an intra-articular aspiration was performed using an 18-gauge needle. Approximately 12 mL of normal-appearing joint fluid was aspirated. That was sent for culture and sensitivity from the culture and sensitivity from the bursal infection. The normal-appearing joint fluid was also sent for Gram stain, cell count, and culture and sensitivity. Decision was made not to perform arthroscopy because of the normal appearing fluid. The gross contamination through which an incision would have to pass to reach the intra-articular space for arthroscopy was outweighed by the benefit of observation. She tolerated the procedures well. There were no complications. I attest I performed the entire operation. She was transferred to recovery in good condition. Howard Rojas M.D. DR: MANI JOB#: [id number] CC: HANNA
--- NOTE | 2019-07-09 23:30 | NUR ---
NURSE NOTES: patient is back on the unit per bed accompanied by 2 OR staff.drowsy but easily arousable. denies any pain. s/p left knee I & D and [place] placement. left knee noted with intact dressing with no noted discharge or bleeding. with iv bolus ongoing and wound vac ( 125, medium, continuos) on the left knee draining well with blood. vital signs of 136/85 mmhg, 130 bpm, 20 cpm, 99.0F, 97%.will continue plan of care.
--- NOTE | 2019-07-10 00:30 | NUR ---
NURSE NOTES: patients heart rate is ranging from 127-138 bpm. not restless. denies any pain or discomfort. called dr. latif and received an order for clonidine 0.1 mg Po QID routine hold fo sbp <100or HR<50, ativan 1 mg IVP Q4 PRN, stat EKG and TROPONIN and consults. noted and carried out. charge nurse made aware.
[2019-07-10] MEDS ORDERED: LORazepam Inj 2mg/ml 1ml IV PRN (01:15)
--- NOTE | 2019-07-10 01:15 | NUR ---
NURSE NOTES: vital signs 11:30pm 136/85, 130 bpm, 99.0F, 97% 11:45pm 124/82,127 bpm, 98.5,94% 12:00am 124/77, 138bpm, 98.5, 96% 12;15am 123/7, 134 bpm, 98.4F,97% 12:45am 121/78, 120 bpm, 98.0, 96% 1:15am 120/72, 132 bpm, 98.6F, 96% 3;15am 125/75, 119 bpm, 98.3, 97% 05:15am 121/76, 118 bpm, 98.6 ,97%
[2019-07-10] MEDS: Cefepime HCl 1 GM in D5W 55 ML IVPB SCH ×2 (02:34→15:39)
[2019-07-10 04:00] VITALS: BP 124/76
[2019-07-10] MEDS: Vancomycin 1gm/D5W 275ml IVPB SCH ×4 (05:10→18:30)
[2019-07-10 06:07] LABS: BASOPHILS % (AUTO) 0.3 % (0.0-2.0); EOSINOPHILS % (AUTO) 0.6 % (0.0-3.0); HEMATOCRIT 29.9 % (37.0-47.0); HEMOGLOBIN 10.3 G/DL (12.0-16.0); MEAN CORPUSCULAR VOLUME 84 FL (80-99); MONOCYTES % (AUTO) 6.2 % (1.0-10.0); NEUTROPHILS % (AUTO) 83.9 % (45.0-75.0); PLATELET COUNT 370 K/UL (150-450); RED BLOOD COUNT 3.56 M/UL (4.20-5.40); RED CELL DISTRIBUTION WIDTH 11.4 % (11.6-14.8); WHITE BLOOD COUNT 15.8 K/UL (4.8-10.8)
[2019-07-10 06:29] LABS: ANION GAP 8 mmol/L (5-15); BLOOD UREA NITROGEN 7 mg/dL (7-18); CALCIUM 6.9 MG/DL (8.5-10.1); CARBON DIOXIDE 25 MMOL/L (21-32); CHLORIDE 109 MMOL/L (98-107); CREATININE 0.6 MG/DL (0.55-1.30); POTASSIUM 3.1 MMOL/L (3.5-5.1); SODIUM 142 MMOL/L (136-145)
--- NOTE | 2019-07-10 07:36 | NUR ---
HAND-OFF: Report given to mark aleman.endorsed pt with wound vac with noted output 75ml.
[2019-07-10 08:00] VITALS: BP 128/92
--- NOTE | 2019-07-10 08:05 | NUR ---
NURSE NOTES: Received pt from [facility]. pt was resting comfortably no c/o pain at this time. Left knee with wound Vac was in place. 125, continuous. no acute distress at this time. call light w/in reach.
[2019-07-10] MEDS: D5 1/2NS 1,000 ML IV SCH (08:24)
[2019-07-10] MEDS: Heparin 5000 units/ml inj SUBQ SCH ×2 (08:29→21:55)
--- NOTE | 2019-07-10 10:43 | Infectious Diseases Prog Note ---
Assessment/Plan Assessment/Plan Assessment: Sepsis L knee septic bursitis and probable arthritis (no hx of trauma) 2ry to S. aureus - r/o bacteremia, endocarditis -07/09 SP Left knee prepatellar bursa irrigation and debridement with 6 liters of antibiotic impregnated fluid. Left knee prepatellar bursal wound VAC application. Left knee intraarticular joint aspiration. --FIndings: large purulent draining prepatellar bursa and trace effusion in the intra-articular space. Approximately 12 mL of normal-appearing joint fluid was aspirated.That was sent for culture and sensitivity from the culture and sensitivity from the bursal infection. Decision was made not to perform arthroscopy because of the normal appearing fluid. -07/09 Bcx p wound cx (superificial): S. aureus -Xray: Negative for acute fracture. Moderate soft tissue swelling -CXR: No acute findings -ESR 85,CRP 24.4 Afebrile Leukocytosis Drug intoxication -UDS +amphetamine, THC Plan: -Continue empiric IV Vancomycin #2 and Cefepime #2 pending cultures -will d/c Cefepime if no gram neg growth -07/09 SP Zosyn x1 -f/u cx -Monitor CBC/CMP, temperatures -f/u OR cx -2d Ech0 -Ortho f/u -wound care per ortho Thank you for this consultation. Will continue to follow along with you. Discussed with RN Subjective Allergies: Coded Allergies: DIVALPROEX SODIUM (Verified Allergy, Unknown, 12/24/17) IBUPROFEN (Verified Allergy, Unknown, 12/24/17) TRAMADOL (Verified Allergy, Unknown, 12/24/17) UNABLE TO ASSESS (Unverified , 03/14/18) Subjective afebrile wbc improving s/p I+D last night Objective Vital Signs Last 24 Hour Vital Signs Date Time Temp Pulse Resp B/P (MAP) Pulse Ox O2 Delivery O2 Flow Rate FiO2 07/10/19 08:24 128/92 07/10/19 08:00 98.2 113 18 128/92 (104) 98 07/10/19 04:00 97.9 120 18 124/76 (92) 98 07/09/19 23:05 98.5 124 14 133/86 100 Nasal Cannula 3 07/09/19 22:50 134 17 144/88 100 Nasal Cannula 3 07/09/19 22:40 127 15 138/95 100 Nasal Cannula 3 07/09/19 22:30 134 20 132/92 100 Nasal Cannula 3 07/09/19 22:25 131 24 144/96 100 Simple Mask 6 07/09/19 22:20 97.9 135 15 130/95 96 Simple Mask 6 07/09/19 21:00 Room Air 07/09/19 20:00 99.8 137 19 117/64 (81) 97 07/09/19 16:33 Room Air 07/09/19 16:30 99.4 136 18 123/84 (97) 100 07/09/19 15:47 98.8 137 19 130/68 98 Room Air 07/09/19 13:58 98.8 07/09/19 13:18 98.8 148 24 128/68 (88) 95 Room Air Height (Feet): 5 Height (Inches): 2.00 Weight (Pounds): 125 Objective General: mild distress due to pain: HEENT: no oral lesions Heart: Tachycardic LUngs: CTA x2 Extremities: - Left knee with bandages in place, wound vac in place Microbiology Date/Time Source Procedure Growth Status 07/09/19 15:15 Knee Left Gram Stain Pending Resulted 07/09/19 15:15 Wound Culture - Preliminary Staphylococcus Aureus Resulted Laboratory Tests Test 07/09/19 13:17 07/09/19 13:41 07/09/19 13:45 07/09/19 14:20 White Blood Count 20.7 K/UL (4.8-10.8) H Red Blood Count 4.46 M/UL (4.20-5.40) Hemoglobin 12.8 G/DL (12.0-16.0) Hematocrit 36.9 % (37.0-47.0) L Mean Corpuscular Volume 83 FL (80-99) Mean Corpuscular Hemoglobin 28.8 PG (27.0-31.0) Mean Corpuscular Hemoglobin Concent 34.8 G/DL (32.0-36.0) Red Cell Distribution Width 11.2 % (11.6-14.8) L Platelet Count 437 K/UL (150-450) Mean Platelet Volume 5.5 FL (6.5-10.1) L Neutrophils (%) (Auto) % (45.0-75.0) Lymphocytes (%) (Auto) % (20.0-45.0) Monocytes (%) (Auto) % (1.0-10.0) Eosinophils (%) (Auto) % (0.0-3.0) Basophils (%) (Auto) % (0.0-2.0) Differential Total Cells Counted 100 Neutrophils % (Manual) 90 % (45-75) H Lymphocytes % (Manual) 5 % (20-45) L Monocytes % (Manual) 5 % (1-10) Eosinophils % (Manual) 0 % (0-3) Basophils % (Manual) 0 % (0-2) Band Neutrophils 0 % (0-8) Platelet Estimate Adequate Platelet Morphology Normal Red Blood Cell Morphology Normal Erythrocyte Sedimentation Rate 85 MM/HR (0-20) H Prothrombin Time 11.0 SEC (9.30-11.50) Prothromb Time International Ratio 1.0 (0.9-1.1) Activated Partial Thromboplast Time 39 SEC (23-33) H Lactic Acid Level 2.40 mmol/L (0.4-2.0) H Urine Color Yellow Urine Appearance Clear Urine pH 6.5 (4.5-8.0) Urine Specific [place] 1.010 (1.005-1.035) Urine Protein 2+ (NEGATIVE) H Urine Glucose (UA) Negative (NEGATIVE) Urine Ketones 3+ (NEGATIVE) H Urine Blood Negative (NEGATIVE) Urine Nitrite Negative (NEGATIVE) Urine Bilirubin Negative (NEGATIVE) Urine Urobilinogen 4 MG/DL (0.0-1.0) H Urine Leukocyte Esterase 1+ (NEGATIVE) H Urine RBC 0-2 /HPF (0 - 2) Urine WBC 5-10 /HPF (0 - 2) H Urine Squamous Epithelial Cells Few /LPF (NONE/OCC) Urine Bacteria Few /HPF (NONE) Urine Mucus Few /LPF (NONE/OCC) H Urine Opiates Screen Negative (NEGATIVE) Urine Barbiturates Screen Negative (NEGATIVE) Phencyclidine (PCP) Screen Negative (NEGATIVE) Urine Amphetamines Screen Positive (NEGATIVE) H Urine Benzodiazepines Screen Negative (NEGATIVE) Urine Cocaine Screen Negative (NEGATIVE) Urine Marijuana (THC) Screen Positive (NEGATIVE) H Urine HCG, Qualitative Negative (NEGATIVE) Sodium Level 144 MMOL/L (136-145) Potassium Level 3.3 MMOL/L (3.5-5.1) L Chloride Level 108 MMOL/L (98-107) H Carbon Dioxide Level 26 MMOL/L (21-32) Anion Gap 10 mmol/L (5-15) Blood Urea Nitrogen 16 mg/dL (7-18) Creatinine 0.6 MG/DL (0.55-1.30) Estimat Glomerular Filtration Rate > 60 mL/min (>60) Glucose Level 105 MG/DL (74-106) Calcium Level 8.3 MG/DL (8.5-10.1) L Magnesium Level 1.7 MG/DL (1.8-2.4) L Total Bilirubin 0.5 MG/DL (0.2-1.0) Aspartate Amino Transf (AST/SGOT) 25 U/L (15-37) Alanine Aminotransferase (ALT/SGPT) 36 U/L (12-78) Alkaline Phosphatase 76 U/L (46-116) Total Creatine Kinase 117 U/L (26-308) Troponin I 0.000 ng/mL (0.000-0.056) Total Protein 7.2 G/DL (6.4-8.2) Albumin 2.7 G/DL (3.4-5.0) L Globulin 4.5 g/dL Albumin/Globulin Ratio 0.6 (1.0-2.7) L Test 07/09/19 14:50 07/09/19 21:50 07/10/19 01:29 07/10/19 04:30 Lactic Acid Level 1.30 mmol/L (0.66-2.22) Body Fluid Source Intraarticular joint Body Fluid Volume 8.5 mL Body Fluid Appearance Clear (Clear) Body Fluid RBC 22 /CUMM Body Fluid Total Nucleated Cells 195 /CUMM Synovial Fluid Crystals Pending Troponin I 0.008 ng/mL (0.000-0.056) White Blood Count 15.8 K/UL (4.8-10.8) H Red Blood Count 3.56 M/UL (4.20-5.40) L Hemoglobin 10.3 G/DL (12.0-16.0) L Hematocrit 29.9 % (37.0-47.0) L Mean Corpuscular Volume 84 FL (80-99) Mean Corpuscular Hemoglobin 28.8 PG (27.0-31.0) Mean Corpuscular Hemoglobin Concent 34.4 G/DL (32.0-36.0) Red Cell Distribution Width 11.4 % (11.6-14.8) L Platelet Count 370 K/UL (150-450) Mean Platelet Volume 4.6 FL (6.5-10.1) L Neutrophils (%) (Auto) 83.9 % (45.0-75.0) H Lymphocytes (%) (Auto) 9.0 % (20.0-45.0) L Monocytes (%) (Auto) 6.2 % (1.0-10.0) Eosinophils (%) (Auto) 0.6 % (0.0-3.0) Basophils (%) (Auto) 0.3 % (0.0-2.0) Sodium Level 142 MMOL/L (136-145) Potassium Level 3.1 MMOL/L (3.5-5.1) L Chloride Level 109 MMOL/L (98-107) H Carbon Dioxide Level 25 MMOL/L (21-32) Anion Gap 8 mmol/L (5-15) Blood Urea Nitrogen 7 mg/dL (7-18) Creatinine 0.6 MG/DL (0.55-1.30) Estimat Glomerular Filtration Rate > 60 mL/min (>60) Glucose Level 97 MG/DL (74-106) Calcium Level 6.9 MG/DL (8.5-10.1) L C-Reactive Protein, Quantitative 24.4 mg/dL (0.00-0.90) H Current Medications Medications (Trade) Dose Ordered Sig/Hemalatha Route PRN Reason Start Time Stop Time Status Last Admin Dose Admin Cefepime HCl 1 gm/ Dextrose 55 ml @ 110 mls/hr Q12H IVPB 07/10/19 02:30 07/17/19 02:29 07/10/19 02:34 Clonidine HCl (Catapres Tab) 0.1 mg QID ORAL 07/10/19 09:00 08/09/19 01:14 07/10/19 08:24 Dextrose/Sodium Chloride 1,000 ml @ 60 mls/hr [id number] IV 07/09/19 17:00 08/08/19 16:59 07/10/19 08:24 Diphenhydramine HCl (Benadryl) 50 mg Q6H PRN ORAL Itching 07/09/19 16:45 08/08/19 16:44 Heparin Sodium (Porcine) (Heparin 5000 units/ml) 5,000 units EVERY 12 HOURS SUBQ 07/09/19 21:00 08/08/19 20:59 07/10/19 08:29 Hydromorphone HCl (Dilaudid) 0.5 mg EVERY 3 HOURS PRN IVP FOR SEVERE PAIN 07/09/19 22:45 07/16/19 22:44 Lorazepam (Ativan 2mg/ml 1ml) 1 mg Q4H PRN IV For Anxiety 07/10/19 01:15 07/17/19 01:14 Lorazepam (Ativan) 1 mg Q6H PRN ORAL For Anxiety 07/09/19 19:00 07/16/19 18:59 Morphine Sulfate (Morphine Sulfate) 2 mg Q4H PRN IVP For Pain 07/09/19 16:45 07/16/19 16:44 Ondansetron HCl (Zofran ODT) 4 mg QID PRN ORAL Nausea & Vomiting 07/09/19 16:45 08/08/19 16:44 Vancomycin HCl (Vanco rx to dose) 1 ea DAILY PRN MISC Per rx protocol 07/09/19 17:45 08/08/19 17:44 Vancomycin HCl 1 gm/Dextrose 275 ml @ 183.708 mls/hr Q12H IVPB 07/10/19 06:00 07/15/19 05:59 07/10/19 05:10 Saumya Moya M.D. Jul 10, 2019 10:43
--- NOTE | 2019-07-10 11:00 | History and Physical Report ---
DATE OF ADMISSION: 07/09/2019 DATE AND TIME SEEN: 07/10/2019 at 8 a.m. CONSULTANTS: 1. Howard Rojas M.D. 2. Grayson Figueroa M.D. 3. Asif Catalan M.D. 4. Mehdi Noyola M.D. 5. . CHIEF COMPLAINT: Left septic knee, status post washout. BRIEF HISTORY: This is a 29-year-old female, who lives at home, six days ago went to [facility], was diagnosed with left knee swelling and was treated and sent home. The patient came back [facility], diagnosed with left septic knee, admitted to medical floor. Wound was washed out per surgeon last night. Currently, calm in bed. No complaint. No chest pain. No shortness of breath. No nausea, vomiting, or diarrhea. PAST MEDICAL HISTORY: Includes anemia, drug abuse, tachycardia. PAST SURGICAL HISTORY: None. MEDICATIONS: Include clonidine, vancomycin, lorazepam, hydromorphone, Zofran, morphine, and fentanyl. ALLERGIES: Divalproex, ibuprofen, and tramadol. SOCIAL HISTORY: Positive smoke. No alcohol. Positive methamphetamine and amphetamine use. OBJECTIVE: GENERAL: Calm in bed, oriented x3, no acute distress. VITAL SIGNS: Temperature is 98 degrees, pulse 113, respirations 18, blood pressure 128/92. CARDIOVASCULAR: No murmurs. LUNGS: Distant and clear. ABDOMEN: Bowel sound positive. Nontender. Nondistended. EXTREMITIES: No cyanosis or clubbing. A 1+ edema left leg. Knee dressing clean and dry. NEUROLOGIC: The patient moves all extremities, slightly weak. LABORATORY AND DIAGNOSTIC DATA: Labs at this time show white count 13, hemoglobin and hematocrit 10/29, platelets 370. BMP show potassium 3.1, chloride 109, calcium 6.9. INR is 1.0 and PTT 39. Urinalysis show 1+ leukocyte esterase. Urine tox positive for amphetamine and marijuana. ASSESSMENT: 1. Left septic knee, status post washout. 2. UTI. 3. Tachycardia. 4. Anemia. 5. Drug abuse. PLAN: 1. Detox. 2. Pain control. 3. Antibiotic per Infectious Disease. 4. Wound care. 5. Dietary followup. 6. We will add Nephrology followup as well. Anoop Lopez D.O. DR: LESLEE JOB#: [id number] CC:
[2019-07-10 12:00] VITALS: BP 117/77
--- NOTE | 2019-07-10 13:02 | 48 Hour Post Anesthesia Eval ---
Post Anesthesia Evaluation Procedure: IND LEFT KNEE Date of Evaluation: Jul 10, 2019 Time of Evaluation: 13:02 Blood Pressure Systolic: 122 0: 74 Pulse Rate: 100 Respiratory Rate: 14 O2 Sat by Pulse Oximetry: 98 Airway: patent Nausea: No Vomiting: No Pain Intensity: 0 Hydration Status: adequate Cardiopulmonary Status: stable Mental Status/LOC: patient returned to baseline Post-Anesthesia Complications: none Follow-up care needed: N/A Nellie Moreira CRNA Jul 10, 2019 13:02
--- NOTE | 2019-07-10 13:39 | Consultation ---
History of Present Illness General Date patient seen: Jul 10, 2019 Reason for Hospitalization: Lower Extremity Injury Present Illness HPI Patient presents with several days of swelling of her left knee. This is been going on and worsening for at least 6 days. She alleges that she was recently in the hospital. She received Zyprexa and believes that this might be an allergic reaction to the Zyprexa. She denies any trauma to the knee. She has had fevers and chills. She is unable to weight-bear at this time. She is quite anxious at this time. She denies suicidal or homicidal ideation. Patient admits to methamphetamine. She denies IV drug use. states inhales crack, meth, weed. No sore throat, chest pain, nausea, vomiting, diarrhea, dysuria, abdominal pain, shortness of breath, visual changes, dizziness, headache. Allergies: Coded Allergies: DIVALPROEX SODIUM (Verified Allergy, Unknown, 12/24/17) IBUPROFEN (Verified Allergy, Unknown, 12/24/17) TRAMADOL (Verified Allergy, Unknown, 12/24/17) UNABLE TO ASSESS (Unverified , 03/14/18) Medication History No Active Prescriptions or Reported Meds Patient History History Provided By: Patient Healthcare decision maker Janki Otero Resuscitation status Full Code Advanced Directive on File No Past Medical/Surgical History Past Medical/Surgical History: (1) Behavioral change (2) Substance abuse (3) Sepsis (4) Septic joint of left knee joint Review of Systems Review of Symptoms General ROS: no weight loss or fever Psychological ROS: no depression or mood changes, no memory loss Ophthalmic ROS: no visual changes or eye irritation ENT ROS: no nasal congestion, hearing loss, dizziness Allergy and Immunology ROS: no allergic symptoms or urticaria Hematological and Lymphatic ROS: no swollen glands, unusual bleeding or bruising Endocrine ROS: no polyuria, polydipsia, weight changes, temperature intolerance Respiratory ROS: no cough, shortness of breath, or wheezing Cardiovascular ROS: no chest pain or dyspnea on exertion Gastrointestinal ROS: denies abdominal pain, bright red blood in stool. Musculoskeletal ROS: left leg pain Neurological ROS: no TIA or stroke symptoms Dermatological ROS: no new or changing skin lesions, rashes or pruritis Physical Exam Physical Exam General appearance: alert, cooperative, no distress, appears stated age Head: Normocephalic, without obvious abnormality, atraumatic Eyes: conjunctivae/corneas clear. PERRL, EOM's intact. Fundi benign Throat: Lips, mucosa, and tongue normal. Teeth and gums normal Neck: supple, symmetrical, trachea midline, no adenopathy, thyroid: not enlarged, symmetric, no tenderness/mass/nodules, no carotid bruit and no JVD Lungs: clear to auscultation bilaterally Heart: regular rate and rhythm, S1, S2 normal, no murmur, click, rub or gallop Abdomen: soft, non-tender. Bowel sounds normal. No masses, no organomegaly Extremities: extremities left knee with vac and dressings Pulses: 2+ and symmetric Skin: Skin color, texture, turgor normal. No rashes or lesions Neurologic: Grossly normal Last 24 Hour Vital Signs Date Time Temp Pulse Resp B/P (MAP) Pulse Ox O2 Delivery O2 Flow Rate FiO2 07/10/19 13:02 100 14 98 07/10/19 12:53 117/77 07/10/19 12:00 98.2 122 18 117/77 (90) 98 07/10/19 09:00 Room Air 07/10/19 08:24 128/92 07/10/19 08:00 98.2 113 18 128/92 (104) 98 07/10/19 04:00 97.9 120 18 124/76 (92) 98 07/09/19 23:05 98.5 124 14 133/86 100 Nasal Cannula 3 07/09/19 22:50 134 17 144/88 100 Nasal Cannula 3 07/09/19 22:40 127 15 138/95 100 Nasal Cannula 3 07/09/19 22:30 134 20 132/92 100 Nasal Cannula 3 07/09/19 22:25 131 24 144/96 100 Simple Mask 6 07/09/19 22:20 97.9 135 15 130/95 96 Simple Mask 6 07/09/19 21:00 Room Air 07/09/19 20:00 99.8 137 19 117/64 (81) 97 07/09/19 16:33 Room Air 07/09/19 16:30 99.4 136 18 123/84 (97) 100 07/09/19 15:47 98.8 137 19 130/68 98 Room Air 07/09/19 13:58 98.8 Intake and Output 07/09/19 07/10/19 19:00 07:00 Intake Total 2197.416 ml Output Total 30 ml Balance 2167.416 ml Intake IV Total 2197.416 ml Output Estimated Blood Loss 30 ml # Voids 1 Laboratory Tests Test 07/09/19 13:41 07/09/19 13:45 07/09/19 14:20 07/09/19 14:50 Urine Color Yellow Urine Appearance Clear Urine pH 6.5 (4.5-8.0) Urine Specific [place] 1.010 (1.005-1.035) Urine Protein 2+ (NEGATIVE) H Urine Glucose (UA) Negative (NEGATIVE) Urine Ketones 3+ (NEGATIVE) H Urine Blood Negative (NEGATIVE) Urine Nitrite Negative (NEGATIVE) Urine Bilirubin Negative (NEGATIVE) Urine Urobilinogen 4 MG/DL (0.0-1.0) H Urine Leukocyte Esterase 1+ (NEGATIVE) H Urine RBC 0-2 /HPF (0 - 2) Urine WBC 5-10 /HPF (0 - 2) H Urine Squamous Epithelial Cells Few /LPF (NONE/OCC) Urine Bacteria Few /HPF (NONE) Urine Mucus Few /LPF (NONE/OCC) H Urine Opiates Screen Negative (NEGATIVE) Urine Barbiturates Screen Negative (NEGATIVE) Phencyclidine (PCP) Screen Negative (NEGATIVE) Urine Amphetamines Screen Positive (NEGATIVE) H Urine Benzodiazepines Screen Negative (NEGATIVE) Urine Cocaine Screen Negative (NEGATIVE) Urine Marijuana (THC) Screen Positive (NEGATIVE) H Urine HCG, Qualitative Negative (NEGATIVE) Sodium Level 144 MMOL/L (136-145) Potassium Level 3.3 MMOL/L (3.5-5.1) L Chloride Level 108 MMOL/L (98-107) H Carbon Dioxide Level 26 MMOL/L (21-32) Anion Gap 10 mmol/L (5-15) Blood Urea Nitrogen 16 mg/dL (7-18) Creatinine 0.6 MG/DL (0.55-1.30) Estimat Glomerular Filtration Rate > 60 mL/min (>60) Glucose Level 105 MG/DL (74-106) Calcium Level 8.3 MG/DL (8.5-10.1) L Magnesium Level 1.7 MG/DL (1.8-2.4) L Total Bilirubin 0.5 MG/DL (0.2-1.0) Aspartate Amino Transf (AST/SGOT) 25 U/L (15-37) Alanine Aminotransferase (ALT/SGPT) 36 U/L (12-78) Alkaline Phosphatase 76 U/L (46-116) Total Creatine Kinase 117 U/L (26-308) Troponin I 0.000 ng/mL (0.000-0.056) Total Protein 7.2 G/DL (6.4-8.2) Albumin 2.7 G/DL (3.4-5.0) L Globulin 4.5 g/dL Albumin/Globulin Ratio 0.6 (1.0-2.7) L Lactic Acid Level 1.30 mmol/L (0.66-2.22) Test 07/09/19 21:50 07/10/19 01:29 07/10/19 04:30 Body Fluid Source Intraarticular joint Body Fluid Volume 8.5 mL Body Fluid Appearance Clear (Clear) Body Fluid RBC 22 /CUMM Body Fluid Total Nucleated Cells 195 /CUMM Synovial Fluid Crystals Pending Troponin I 0.008 ng/mL (0.000-0.056) White Blood Count 15.8 K/UL (4.8-10.8) H Red Blood Count 3.56 M/UL (4.20-5.40) L Hemoglobin 10.3 G/DL (12.0-16.0) L Hematocrit 29.9 % (37.0-47.0) L Mean Corpuscular Volume 84 FL (80-99) Mean Corpuscular Hemoglobin 28.8 PG (27.0-31.0) Mean Corpuscular Hemoglobin Concent 34.4 G/DL (32.0-36.0) Red Cell Distribution Width 11.4 % (11.6-14.8) L Platelet Count 370 K/UL (150-450) Mean Platelet Volume 4.6 FL (6.5-10.1) L Neutrophils (%) (Auto) 83.9 % (45.0-75.0) H Lymphocytes (%) (Auto) 9.0 % (20.0-45.0) L Monocytes (%) (Auto) 6.2 % (1.0-10.0) Eosinophils (%) (Auto) 0.6 % (0.0-3.0) Basophils (%) (Auto) 0.3 % (0.0-2.0) Sodium Level 142 MMOL/L (136-145) Potassium Level 3.1 MMOL/L (3.5-5.1) L Chloride Level 109 MMOL/L (98-107) H Carbon Dioxide Level 25 MMOL/L (21-32) Anion Gap 8 mmol/L (5-15) Blood Urea Nitrogen 7 mg/dL (7-18) Creatinine 0.6 MG/DL (0.55-1.30) Estimat Glomerular Filtration Rate > 60 mL/min (>60) Glucose Level 97 MG/DL (74-106) Calcium Level 6.9 MG/DL (8.5-10.1) L C-Reactive Protein, Quantitative 24.4 mg/dL (0.00-0.90) H Microbiology Date/Time Source Procedure Growth Status 07/09/19 21:50 Synovial Fluid Gram Stain - Final Resulted 07/09/19 21:50 Synovial Fluid Body Fluid Culture Pending Resulted 07/09/19 21:50 Knee Left Gram Stain - Final Resulted 07/09/19 21:50 Knee Left Aerobic Culture Pending Resulted 07/09/19 21:50 Knee Left Anaerobic Culture Pending Resulted 07/09/19 21:50 Knee Left Gram Stain - Final Resulted 07/09/19 21:50 Knee Left Aerobic Culture Pending Resulted 07/09/19 21:50 Knee Left Anaerobic Culture Pending Resulted 07/09/19 17:30 Knee Left Gram Stain - Final Resulted 07/09/19 17:30 Knee Left Wound Culture Pending Resulted 07/09/19 15:15 Knee Left Gram Stain - Final Resulted 07/09/19 15:15 Wound Culture - Preliminary Staphylococcus Aureus Resulted Height (Feet): 5 Height (Inches): 2.00 Weight (Pounds): 125 Medications Current Medications Medications (Trade) Dose Ordered Sig/Hemalatha Route PRN Reason Start Time Stop Time Status Last Admin Dose Admin Cefepime HCl 1 gm/ Dextrose 55 ml @ 110 mls/hr Q12H IVPB 07/10/19 02:30 07/17/19 02:29 07/10/19 02:34 Clonidine HCl (Catapres Tab) 0.1 mg QID ORAL 07/10/19 09:00 08/09/19 01:14 07/10/19 12:53 Dextrose/Sodium Chloride 1,000 ml @ 60 mls/hr [id number] IV 07/09/19 17:00 08/08/19 16:59 07/10/19 08:24 Diphenhydramine HCl (Benadryl) 50 mg Q6H PRN ORAL Itching 07/09/19 16:45 08/08/19 16:44 Heparin Sodium (Porcine) (Heparin 5000 units/ml) 5,000 units EVERY 12 HOURS SUBQ 07/09/19 21:00 08/08/19 20:59 07/10/19 08:29 Hydromorphone HCl (Dilaudid) 0.5 mg EVERY 3 HOURS PRN IVP FOR SEVERE PAIN 07/09/19 22:45 07/16/19 22:44 Lorazepam (Ativan 2mg/ml 1ml) 1 mg Q4H PRN IV For Anxiety 07/10/19 01:15 07/17/19 01:14 Lorazepam (Ativan) 1 mg Q6H PRN ORAL For Anxiety 07/09/19 19:00 07/16/19 18:59 Morphine Sulfate (Morphine Sulfate) 2 mg Q4H PRN IVP For Pain 07/09/19 16:45 07/16/19 16:44 Ondansetron HCl (Zofran ODT) 4 mg QID PRN ORAL Nausea & Vomiting 07/09/19 16:45 08/08/19 16:44 Vancomycin HCl (Vanco rx to dose) 1 ea DAILY PRN MISC Per rx protocol 07/09/19 17:45 08/08/19 17:44 Vancomycin HCl 1 gm/Dextrose 275 ml @ 183.708 mls/hr Q12H IVPB 07/10/19 06:00 07/15/19 05:59 07/10/19 05:10 Assessment/Plan Problem List: (1) Septic joint of left knee joint Assessment & Plan: s/p drainage and washout by ortho vac in place with dressings vac output serosang dressings c/d/i ICD Codes: M00.9 - Pyogenic arthritis, unspecified SNOMED: [id number], [id number] Qualifiers: Qualified Codes: M00.9 - Pyogenic arthritis, unspecified (2) Sepsis Assessment & Plan: septic knee s/p washout improving abx as per ID vac will change vac every 2-3 days thank you ICD Codes: A41.9 - Sepsis, unspecified organism SNOMED: 09401262 Qualifiers: Qualified Codes: A41.9 - Sepsis, unspecified organism Asif Catalan Jul 10, 2019 13:39
--- NOTE | 2019-07-10 14:02 | NUR ---
PT Note Acknowledged order for PT eval. Patient had knee surgery by Dr Rojas. PT was ordered by Dr. Lopez. Conferred with RN; requested RN to obtain weight bearing status from Dr Rojas first prior to implementing PT eval/tx. Will await WB clarification.
[2019-07-10 15:39] VITALS: BP 119/79
--- NOTE | 2019-07-10 19:42 | NUR ---
NURSE NOTES: Received patient on bed awake and verbally responsive. no sob. denies any pain or discomfort. with wound vac draining well. reiterated to limit from moving the left leg. iv line on the right ac. advised to call or ask for assistance. bed locked and in lowest position. call light and light button within easy reach. will continue plan of care
--- NOTE | 2019-07-10 19:47 | NUR ---
HAND-OFF: Report given to TUAN Levy. pt is stable condition.
[2019-07-10 20:00] VITALS: BP 127/70
--- NOTE | 2019-07-10 21:20 | Cardiology Progress Note ---
Assessment/Plan Assessment/Plan The patient is seen and examined, full consult note will be dictated. Objective Last 24 Hour Vital Signs Date Time Temp Pulse Resp B/P (MAP) Pulse Ox O2 Delivery O2 Flow Rate FiO2 07/10/19 18:31 115/76 07/10/19 15:39 99.0 117 18 119/79 (92) 98 07/10/19 13:02 100 14 98 07/10/19 12:53 117/77 07/10/19 12:00 98.2 122 18 117/77 (90) 98 07/10/19 09:00 Room Air 07/10/19 08:24 128/92 07/10/19 08:00 98.2 113 18 128/92 (104) 98 07/10/19 04:00 97.9 120 18 124/76 (92) 98 07/09/19 23:05 98.5 124 14 133/86 100 Nasal Cannula 3 07/09/19 22:50 134 17 144/88 100 Nasal Cannula 3 07/09/19 22:40 127 15 138/95 100 Nasal Cannula 3 07/09/19 22:30 134 20 132/92 100 Nasal Cannula 3 07/09/19 22:25 131 24 144/96 100 Simple Mask 6 07/09/19 22:20 97.9 135 15 130/95 96 Simple Mask 6 Intake and Output 07/09/19 07/10/19 19:00 07:00 Intake Total 2197.416 ml Output Total 30 ml Balance 2167.416 ml IV Total 2197.416 ml Estimated Blood Loss 30 ml # Voids 1 Laboratory Tests Test 07/09/19 21:50 07/10/19 01:29 07/10/19 04:30 Body Fluid Source Intraarticular joint Body Fluid Volume 8.5 mL Body Fluid Appearance Clear (Clear) Body Fluid RBC 22 /CUMM Body Fluid Total Nucleated Cells 195 /CUMM Synovial Fluid Crystals Pending Troponin I 0.008 ng/mL (0.000-0.056) White Blood Count 15.8 K/UL (4.8-10.8) H Red Blood Count 3.56 M/UL (4.20-5.40) L Hemoglobin 10.3 G/DL (12.0-16.0) L Hematocrit 29.9 % (37.0-47.0) L Mean Corpuscular Volume 84 FL (80-99) Mean Corpuscular Hemoglobin 28.8 PG (27.0-31.0) Mean Corpuscular Hemoglobin Concent 34.4 G/DL (32.0-36.0) Red Cell Distribution Width 11.4 % (11.6-14.8) L Platelet Count 370 K/UL (150-450) Mean Platelet Volume 4.6 FL (6.5-10.1) L Neutrophils (%) (Auto) 83.9 % (45.0-75.0) H Lymphocytes (%) (Auto) 9.0 % (20.0-45.0) L Monocytes (%) (Auto) 6.2 % (1.0-10.0) Eosinophils (%) (Auto) 0.6 % (0.0-3.0) Basophils (%) (Auto) 0.3 % (0.0-2.0) Sodium Level 142 MMOL/L (136-145) Potassium Level 3.1 MMOL/L (3.5-5.1) L Chloride Level 109 MMOL/L (98-107) H Carbon Dioxide Level 25 MMOL/L (21-32) Anion Gap 8 mmol/L (5-15) Blood Urea Nitrogen 7 mg/dL (7-18) Creatinine 0.6 MG/DL (0.55-1.30) Estimat Glomerular Filtration Rate > 60 mL/min (>60) Glucose Level 97 MG/DL (74-106) Calcium Level 6.9 MG/DL (8.5-10.1) L C-Reactive Protein, Quantitative 24.4 mg/dL (0.00-0.90) H Microbiology Date/Time Source Procedure Growth Status 07/09/19 21:50 Synovial Fluid Gram Stain - Final Resulted 07/09/19 21:50 Synovial Fluid Body Fluid Culture Pending Resulted 07/09/19 21:50 Knee Left Gram Stain - Final Resulted 07/09/19 21:50 Knee Left Aerobic Culture Pending Resulted 07/09/19 21:50 Knee Left Anaerobic Culture Pending Resulted 07/09/19 21:50 Knee Left Gram Stain - Final Resulted 07/09/19 21:50 Knee Left Aerobic Culture Pending Resulted 07/09/19 21:50 Knee Left Anaerobic Culture Pending Resulted 07/09/19 17:30 Knee Left Gram Stain - Final Resulted 07/09/19 17:30 Knee Left Wound Culture Pending Resulted 07/09/19 15:15 Knee Left Gram Stain - Final Resulted 07/09/19 15:15 Wound Culture - Preliminary Staphylococcus Aureus Resulted Rene Murphy MD Jul 10, 2019 21:20
[2019-07-11] VITALS: BP 128/73
[2019-07-11] MEDS: Cefepime HCl 1 GM in D5W 55 ML IVPB SCH ×2 (02:05→15:36)
[2019-07-11] MEDS: D5 1/2NS 1,000 ML IV SCH ×2 (02:05→18:31)
[2019-07-11 04:00] VITALS: BP 115/78
[2019-07-11] MEDS: Vancomycin 1gm/D5W 275ml IVPB SCH ×2 (05:12)
[2019-07-11 05:40] LABS: ANION GAP 8 mmol/L (5-15); BLOOD UREA NITROGEN 2 mg/dL (7-18); CALCIUM 7.7 MG/DL (8.5-10.1); CARBON DIOXIDE 28 MMOL/L (21-32); CHLORIDE 107 MMOL/L (98-107); CREATININE 0.6 MG/DL (0.55-1.30); SODIUM 143 MMOL/L (136-145)
[2019-07-11 05:51] LABS: BASOPHILS % (AUTO) 0.7 % (0.0-2.0); EOSINOPHILS % (AUTO) 5.3 % (0.0-3.0); HEMOGLOBIN 10.2 G/DL (12.0-16.0); LYMPHOCYTES % (AUTO) 24.7 % (20.0-45.0); MEAN CORPUSCULAR VOLUME 83 FL (80-99); MONOCYTES % (AUTO) 4.8 % (1.0-10.0); NEUTROPHILS % (AUTO) 64.5 % (45.0-75.0); PLATELET COUNT 382 K/UL (150-450); RED BLOOD COUNT 3.49 M/UL (4.20-5.40); RED CELL DISTRIBUTION WIDTH 11.5 % (11.6-14.8); WHITE BLOOD COUNT 8.2 K/UL (4.8-10.8)
[2019-07-11 06:07] LABS: POTASSIUM 2.5 MMOL/L (3.5-5.1)
--- NOTE | 2019-07-11 06:30 | NUR ---
called dr. latif regarding the potassium of 2.5. per to call dr oliveira. paged dr. cannon awaiting for orders. charge nurse made aware.
--- NOTE | 2019-07-11 06:45 | NUR ---
NURSE NOTES: paged dr. oliveira. awaiting for call back. charge nurse made aware.
--- NOTE | 2019-07-11 07:30 | NUR ---
HAND-OFF: Report given to mark yen.
--- NOTE | 2019-07-11 07:35 | NUR ---
NURSE NOTES: Received report from Mildred Ng RN. Patient A&Ox4. In bed. On room air, no signs of distress or labored breathing. IV intact, patent, and infusing IV fluids. No complaints of pain. Bed in lowest position with call light in reach. Will continue with plan of care.
[2019-07-11 08:00] VITALS: BP 124/88
--- NOTE | 2019-07-11 08:15 | General Progress Note ---
Assessment/Plan Problem List: (1) Substance abuse ICD Codes: F19.10 - Other psychoactive substance abuse, uncomplicated SNOMED: 70975353 (2) Sepsis ICD Codes: A41.9 - Sepsis, unspecified organism SNOMED: 05225120 Qualifiers: Qualified Codes: A41.9 - Sepsis, unspecified organism (3) Septic joint of left knee joint ICD Codes: M00.9 - Pyogenic arthritis, unspecified SNOMED: 045151162, [id number] Qualifiers: Qualified Codes: M00.9 - Pyogenic arthritis, unspecified (4) Behavioral change ICD Codes: R46.89 - Other symptoms and signs involving appearance and behavior SNOMED: 282351368 Status: unchanged Assessment/Plan: pain control abx pt diet cbc bmp am Subjective Constitutional: Reports: weakness Allergies: Coded Allergies: DIVALPROEX SODIUM (Verified Allergy, Unknown, 12/24/17) IBUPROFEN (Verified Allergy, Unknown, 12/24/17) TRAMADOL (Verified Allergy, Unknown, 12/24/17) UNABLE TO ASSESS (Unverified , 03/14/18) All Systems: reviewed and negative except above Subjective sl l knee pain Objective Last 24 Hour Vital Signs Date Time Temp Pulse Resp B/P (MAP) Pulse Ox O2 Delivery O2 Flow Rate FiO2 07/11/19 04:00 97.9 110 19 115/78 (90) 96 07/11/19 00:00 98.1 119 20 128/73 (91) 97 07/10/19 22:30 128/82 07/10/19 21:00 Room Air 07/10/19 20:00 98.5 122 19 127/70 (89) 98 07/10/19 18:31 115/76 07/10/19 15:39 99.0 117 18 119/79 (92) 98 07/10/19 13:02 100 14 98 07/10/19 12:53 117/77 07/10/19 12:00 98.2 122 18 117/77 (90) 98 07/10/19 09:00 Room Air 07/10/19 08:24 128/92 Intake and Output 07/10/19 07/11/19 19:00 07:00 Intake Total 722 ml Output Total 50 ml Balance 672 ml Intake Oral 722 ml Output Drainage Total 50 ml # Voids 3 Laboratory Tests 07/11/19 05:08: White Blood Count 8.2, Red Blood Count 3.49L, Hemoglobin 10.2L, Hematocrit 29.0L , Mean Corpuscular Volume 83, Mean Corpuscular Hemoglobin 29.2, Mean Corpuscular Hemoglobin Concent 35.1, Red Cell Distribution Width 11.5L, Platelet Count 382, Mean Platelet Volume 4.7L, Neutrophils (%) (Auto) 64.5, Lymphocytes (%) (Auto) 24.7, Monocytes (%) (Auto) 4.8, Eosinophils (%) (Auto) 5.3H, Basophils (%) (Auto) 0.7, Sodium Level 143, Potassium Level 2.5*L, Chloride Level 107, Carbon Dioxide Level 28, Anion Gap 8, Blood Urea Nitrogen 2L , Creatinine 0.6, Estimat Glomerular Filtration Rate > 60, Glucose Level 162H, Calcium Level 7.7L, Vancomycin Level Trough 4.1L Height (Feet): 5 Height (Inches): 2.00 Weight (Pounds): 125 General Appearance: alert EENT: normal ENT inspection Neck: normal alignment Cardiovascular: normal peripheral pulses, normal rate, regular rhythm Respiratory/Chest: chest wall non-tender, lungs clear, normal breath sounds Abdomen: normal bowel sounds, non tender, soft Extremities: normal inspection Edema: no edema noted Arm (L), no edema noted Arm (R), no edema noted Leg (L), no edema noted Leg (R), no edema noted Pedal (L), no edema noted Pedal (R), no edema noted Generalized Neurologic: responsive, motor weakness Skin: normal pigmentation, warm/dry Anoop Lopez DO Jul 11, 2019 08:15
[2019-07-11] MEDS: Heparin 5000 units/ml inj SUBQ SCH ×2 (10:15→22:46)
--- NOTE | 2019-07-11 10:52 | Surgery Progress Note ---
Surgery Progress Note Subjective Additional Comments no acute events comfortable still with pain in knee but better leukocytosis resolved vac working k replaced Objective Last 24 Hour Vital Signs Date Time Temp Pulse Resp B/P (MAP) Pulse Ox O2 Delivery O2 Flow Rate FiO2 07/11/19 10:14 124/88 07/11/19 04:00 97.9 110 19 115/78 (90) 96 07/11/19 00:00 98.1 119 20 128/73 (91) 97 07/10/19 22:30 128/82 07/10/19 21:00 Room Air 07/10/19 20:00 98.5 122 19 127/70 (89) 98 07/10/19 18:31 115/76 07/10/19 15:39 99.0 117 18 119/79 (92) 98 07/10/19 13:02 100 14 98 07/10/19 12:53 117/77 07/10/19 12:00 98.2 122 18 117/77 (90) 98 I&O Intake and Output 07/10/19 07/11/19 19:00 07:00 Intake Total 722 ml Output Total 50 ml Balance 672 ml Intake Oral 722 ml Output Drainage Total 50 ml # Voids 3 Cardiovascular: RSR Respiratory: clear Abdomen: soft, non-tender, present bowel sounds, non-distended Extremities: no cyanosis, other Laboratory Tests Test 07/11/19 05:08 White Blood Count 8.2 K/UL (4.8-10.8) Red Blood Count 3.49 M/UL (4.20-5.40) L Hemoglobin 10.2 G/DL (12.0-16.0) L Hematocrit 29.0 % (37.0-47.0) L Mean Corpuscular Volume 83 FL (80-99) Mean Corpuscular Hemoglobin 29.2 PG (27.0-31.0) Mean Corpuscular Hemoglobin Concent 35.1 G/DL (32.0-36.0) Red Cell Distribution Width 11.5 % (11.6-14.8) L Platelet Count 382 K/UL (150-450) Mean Platelet Volume 4.7 FL (6.5-10.1) L Neutrophils (%) (Auto) 64.5 % (45.0-75.0) Lymphocytes (%) (Auto) 24.7 % (20.0-45.0) Monocytes (%) (Auto) 4.8 % (1.0-10.0) Eosinophils (%) (Auto) 5.3 % (0.0-3.0) H Basophils (%) (Auto) 0.7 % (0.0-2.0) Sodium Level 143 MMOL/L (136-145) Potassium Level 2.5 MMOL/L (3.5-5.1) *L Chloride Level 107 MMOL/L (98-107) Carbon Dioxide Level 28 MMOL/L (21-32) Anion Gap 8 mmol/L (5-15) Blood Urea Nitrogen 2 mg/dL (7-18) L Creatinine 0.6 MG/DL (0.55-1.30) Estimat Glomerular Filtration Rate > 60 mL/min (>60) Glucose Level 162 MG/DL (74-106) H Calcium Level 7.7 MG/DL (8.5-10.1) L Vancomycin Level Trough 4.1 ug/mL (5.0-12.0) L Plan Problems: (1) Septic joint of left knee joint Assessment & Plan: s/p drainage and washout by ortho vac in place with dressings vac output serosang dressings c/d/i (2) Sepsis Assessment & Plan: septic knee s/p washout improving abx as per ID vac will change vac every 2-3 days thank you Asif Catalan Jul 11, 2019 10:52
--- NOTE | 2019-07-11 11:00 | NUR ---
NURSE NOTES: Patient is positive for MRSA wound of the left knee. Dr. Lopez notified, no new orders.
[2019-07-11 12:00] VITALS: BP 151/100
[2019-07-11] MEDS: Vancomycin 1.5gm/NS Premix q24h IVPB SCH ×2 (14:24→23:18)
[2019-07-11 16:00] VITALS: BP 137/95
--- NOTE | 2019-07-11 16:34 | NUR ---
PT Note PT marsha completed, treatment initiated. Patient has left LE weakness with pain and swelling, requiring assist in functional mobility and gait. Patient needs PT to instruct and train on gait with a FWW or crutches for safe and independent functional mobility and gait to enable her to return home. Addendum: 07/11/19 at 1635 by TIMO AYALA PT Amended: Links added.
--- NOTE | 2019-07-11 17:15 | NUR ---
NURSE NOTES: Received patient from 3E from [facility]. Patient is alert and oriented x4. Not in respiratory/cardiac distress. Denies any pain or discomfort on left knee with wound vac, Wound vac dressing is intact, draining. Re-orientation given about the unit.All belongings were checked. Will continue plan of care.
--- NOTE | 2019-07-11 17:30 | NUR ---
TRANSFER TO FLOOR: Patient transferred to AST. Report given to Marisela Lawton RN. Belongings are with patient. In stable condition.
--- NOTE | 2019-07-11 18:15 | Consultation ---
DATE OF CONSULTATION: 07/10/2019 CARDIOLOGY CONSULTATION CONSULTING PHYSICIAN: Rene Murphy M.D. REFERRING PHYSICIAN: Anoop Lopez D.O. REASON FOR CONSULTATION: Management of tachycardia in a patient with left knee bursitis. HISTORY OF PRESENT ILLNESS: The patient is a very unfortunate 29-year-old female, who was initially admitted on 07/09/2019 with swelling of the left knee that has been going on for about 6 days. The patient was recently admitted to the hospital and received Zyprexa and she believes that this might be an allergic reaction to this medication. She denies any trauma to the knee at the time of arrival to this facility, blood pressure was 128/68 with heart rate of 148. She was afebrile. Initial laboratory finding revealed leukocytosis with WBC count of 20.7 and the left shift. Initial troponin I level in the emergency per it department was 0, magnesium level of 1.7. The patient's potassium level was low at 3.3, and sodium of 144. In the emergency department, the patient had toxicology which showed amphetamine, marijuana, and THC in the urine. She was admitted to Med/Surg area and underwent left knee prepatellar bursa irrigation and debridement as well as antibiotic impregnation and intra-articular joint aspiration for diagnosis of left knee prepatellar septic bursitis and left knee septic arthritis. Cardiology consultation was made at request of Dr. Lopez as the patient was tachycardic and under influence of amphetamines. PAST MEDICAL HISTORY: Includes psychiatric disorder. ALLERGIES: To divalproex sodium, ibuprofen, tramadol. SOCIAL HISTORY: Positive for polysubstance abuse including methamphetamines as well as THC. The patient also homeless. No tobacco or alcohol use. FAMILY HISTORY: No premature coronary artery disease in first-degree relatives. MEDICATIONS: List of medications at home, none. REVIEW OF SYSTEMS: A 12-system review done essentially negative except what was mentioned in history of present illness. PAST SURGICAL HISTORY: Status post left knee surgery in this facility. PHYSICAL EXAMINATION: VITAL SIGNS: Blood pressure was 128/68, respirations 24, pulse of 148, temperature 98.8 degrees Fahrenheit, O2 saturation 95% on room air. GENERAL: The patient is a very unfortunate 29-year-old female, in no apparent respiratory distress. Alert, oriented x4. HEENT: Atraumatic, normocephalic. Anicteric. Pupils are equal, round, and reactive to light and accommodation. Extraocular muscles intact. NECK: JVP less than 5 cm. No carotid bruit. Carotid upstrokes 2+ bilaterally. CARDIOVASCULAR: Normal S1, S2. Regular rate and rhythm. Tachycardic. No murmurs, gallops, or rubs. PMI is at fourth intercostal space in the midclavicular line. LUNGS: Clear to auscultation bilaterally. ABDOMEN: Soft, nontender, and nondistended. No hepatosplenomegaly. Positive bowel sounds. EXTREMITIES: There is a Band-Aid over the left knee, otherwise no pedal edema, clubbing, or cyanosis. LABORATORY FINDINGS: From 07/10/2019, sodium was 142, potassium 3.1, chloride 109, bicarbonate 25, BUN of 7, creatinine 0.6, glucose is 97, calcium 6.9. Troponin I level 0.008. INR is 1.0. Hematology, WBC 20.7, hemoglobin of 12.8, hematocrit of 39.6, and platelet count 437. ESR was 85. Chest x-ray showed no acute cardiopulmonary disease. ASSESSMENT AND PLAN: The patient is a very unfortunate 29-year-old female, who is seen in Cardiology consultation. 1. Sinus tachycardia. This is most likely due to amphetamine use and presence of the septic knee in combination. The treatment of this condition is IV antibiotic as well as hydration. The patient also had debridement of the left knee surgically. Given the fact that she was under influence of amphetamines and tachycardia is persistent, I would like to start her on a very low dose of calcium channel blockers with AV clau properties or dihydropyridine calcium channel debra such as diltiazem. 2. Left knee bursitis, status post debridement. 3. Polysubstance abuse including THC and methamphetamines. I would like to thank, Dr. Lopez, for courtesy of this consultation. Rene Murphy M.D. DR: NA JOB#: [id number] CC:
--- NOTE | 2019-07-11 19:24 | NUR ---
HAND-OFF: Report given to Erin. Addendum: 07/11/19 at 1932 by CÉSAR SOTELO RN Report given to Tori
[2019-07-11 20:00] VITALS: BP 152/105
--- NOTE | 2019-07-11 23:58 | Cardiology Progress Note ---
Assessment/Plan Assessment/Plan 1. Sinus tachycardia. This is most likely due to amphetamine use and presence of the septic knee in combination. Continue hydration and diltiazem, IV ABx therapy. 2. Left knee bursitis, status post debridement. 3. Polysubstance abuse including THC and methamphetamines. Subjective Subjective No cardiac events reported. Objective Last 24 Hour Vital Signs Date Time Temp Pulse Resp B/P (MAP) Pulse Ox O2 Delivery O2 Flow Rate FiO2 07/11/19 22:45 152/105 07/11/19 20:11 Room Air 07/11/19 20:00 98.6 108 20 152/105 (121) 99 07/11/19 18:30 150/107 07/11/19 16:00 98.5 86 20 137/95 (109) 98 07/11/19 14:10 151/100 07/11/19 12:00 98.7 94 20 151/100 (117) 98 07/11/19 10:14 124/88 07/11/19 09:00 Room Air 07/11/19 08:00 97.9 97 18 124/88 (100) 96 07/11/19 04:00 97.9 110 19 115/78 (90) 96 07/11/19 00:00 98.1 119 20 128/73 (91) 97 Intake and Output 07/10/19 07/11/19 19:00 07:00 Intake Total 722 ml Output Total 50 ml Balance 672 ml Intake Oral 722 ml Output Drainage Total 50 ml # Voids 3 2D Echo: LVEF 55%, small pericardial Eff., RVSP 18 mmHg. Laboratory Tests Test 07/11/19 05:08 White Blood Count 8.2 K/UL (4.8-10.8) Red Blood Count 3.49 M/UL (4.20-5.40) L Hemoglobin 10.2 G/DL (12.0-16.0) L Hematocrit 29.0 % (37.0-47.0) L Mean Corpuscular Volume 83 FL (80-99) Mean Corpuscular Hemoglobin 29.2 PG (27.0-31.0) Mean Corpuscular Hemoglobin Concent 35.1 G/DL (32.0-36.0) Red Cell Distribution Width 11.5 % (11.6-14.8) L Platelet Count 382 K/UL (150-450) Mean Platelet Volume 4.7 FL (6.5-10.1) L Neutrophils (%) (Auto) 64.5 % (45.0-75.0) Lymphocytes (%) (Auto) 24.7 % (20.0-45.0) Monocytes (%) (Auto) 4.8 % (1.0-10.0) Eosinophils (%) (Auto) 5.3 % (0.0-3.0) H Basophils (%) (Auto) 0.7 % (0.0-2.0) Sodium Level 143 MMOL/L (136-145) Potassium Level 2.5 MMOL/L (3.5-5.1) *L Chloride Level 107 MMOL/L (98-107) Carbon Dioxide Level 28 MMOL/L (21-32) Anion Gap 8 mmol/L (5-15) Blood Urea Nitrogen 2 mg/dL (7-18) L Creatinine 0.6 MG/DL (0.55-1.30) Estimat Glomerular Filtration Rate > 60 mL/min (>60) Glucose Level 162 MG/DL (74-106) H Calcium Level 7.7 MG/DL (8.5-10.1) L Vancomycin Level Trough 4.1 ug/mL (5.0-12.0) L Microbiology Date/Time Source Procedure Growth Status 07/09/19 13:32 Blood Blood Culture - Preliminary NO GROWTH AFTER 24 HOURS Resulted 07/09/19 13:17 Blood Blood Culture - Preliminary NO GROWTH AFTER 24 HOURS Resulted 07/09/19 21:50 Synovial Fluid Gram Stain - Final Resulted 07/09/19 21:50 Synovial Fluid Body Fluid Culture - Preliminary NO GROWTH AFTER 24 HOURS Resulted 07/09/19 21:50 Knee Left Gram Stain - Final Resulted 07/09/19 21:50 Knee Left Aerobic Culture - Preliminary NO GROWTH AFTER 24 HOURS Resulted 07/09/19 21:50 Knee Left Anaerobic Culture - Preliminary NO GROWTH AFTER 24 HOURS Resulted 07/09/19 21:50 Knee Left Gram Stain - Final Resulted 07/09/19 21:50 Aerobic Culture - Preliminary Staphylococcus Aureus Resulted 07/09/19 21:50 Knee Left Anaerobic Culture Pending Resulted 07/09/19 17:30 Knee Left Gram Stain - Final Resulted 07/09/19 17:30 Wound Culture - Preliminary Staphylococcus Aureus Resulted 07/09/19 15:15 Knee Left Gram Stain - Final Complete 07/09/19 15:15 Wound Culture - Final Staphylococcus Aureus - Mrsa Complete Objective HEENT: Atraumatic, normocephalic. Anicteric. Pupils are equal, round, and reactive to light and accommodation. Extraocular muscles intact. NECK: JVP less than 5 cm. No carotid bruit. Carotid upstrokes 2+ bilaterally. CARDIOVASCULAR: Normal S1, S2. Regular rate and rhythm. Tachycardic. No murmurs, gallops, or rubs. PMI is at fourth intercostal space in the midclavicular line. LUNGS: Clear to auscultation bilaterally. ABDOMEN: Soft, nontender, and nondistended. No hepatosplenomegaly. Positive bowel sounds. EXTREMITIES: There is a Band-Aid over the left knee, otherwise no pedal edema, clubbing, or cyanosis. Rene Murphy MD Jul 11, 2019 23:58
[2019-07-12] VITALS: BP 144/109
[2019-07-12] MEDS: dilTIAZem HCl 30mg tab ORAL SCH ×4 (01:05→21:06)
[2019-07-12 04:00] VITALS: BP 136/96
[2019-07-12] MEDS: Cefepime HCl 1 GM in D5W 55 ML IVPB SCH (04:33)
[2019-07-12] MEDS: Vancomycin 1.5gm/NS Premix q24h IVPB SCH ×3 (05:55→21:07)
--- NOTE | 2019-07-12 07:51 | Orthopedic Progress Note ---
Orthopedic - Progress Note Subjective Symptoms: c/o post-op knee pain Objective Last 24 Hour Vital Signs Date Time Temp Pulse Resp B/P (MAP) Pulse Ox O2 Delivery O2 Flow Rate FiO2 07/12/19 06:13 93 136/96 07/12/19 04:00 97.9 93 18 136/96 (109) 99 07/12/19 01:05 82 144/109 07/12/19 00:00 97.7 82 20 144/109 (121) 99 07/11/19 22:45 152/105 07/11/19 20:11 Room Air 07/11/19 20:00 98.6 108 20 152/105 (121) 99 07/11/19 18:30 150/107 07/11/19 16:00 98.5 86 20 137/95 (109) 98 07/11/19 14:10 151/100 07/11/19 12:00 98.7 94 20 151/100 (117) 98 07/11/19 10:14 124/88 07/11/19 09:00 Room Air 07/11/19 08:00 97.9 97 18 124/88 (100) 96 Intake and Output 07/11/19 07/12/19 19:00 07:00 Output Total 25 ml Balance -25 ml Output Drainage Total 25 ml Laboratory Tests Test 07/12/19 06:34 White Blood Count Pending Red Blood Count Pending Hemoglobin Pending Hematocrit Pending Mean Corpuscular Volume Pending Mean Corpuscular Hemoglobin Pending Mean Corpuscular Hemoglobin Concent Pending Red Cell Distribution Width Pending Platelet Count Pending Mean Platelet Volume Pending Neutrophils (%) (Auto) Pending Lymphocytes (%) (Auto) Pending Monocytes (%) (Auto) Pending Eosinophils (%) (Auto) Pending Basophils (%) (Auto) Pending Sodium Level Pending Potassium Level Pending Chloride Level Pending Carbon Dioxide Level Pending Blood Urea Nitrogen Pending Creatinine Pending Estimat Glomerular Filtration Rate Pending Glucose Level Pending Calcium Level Pending Wound: intact Drains: hemovac Neuro Status: normal Vascular Status: normal Plan Plan: pain management, continue antibiotics Additional Comments Wound VAC team to change sponge twice weekly. The intra-articular results were negative for infection thus far. The Staph of the bursa should be treated according to ID consultation recommendations. She may be ambulated and WBAT left LE. Placement is important since she does not have a permanent address and will most likely need extended PICC IV treatment. Her drug abuse history must be considered. Howard Rojas MD Jul 12, 2019 07:51
--- NOTE | 2019-07-12 07:52 | NUR ---
HAND-OFF: Report given to TUAN Nieves.
[2019-07-12 08:00] VITALS: BP 129/91
[2019-07-12 08:06] LABS: BASOPHILS % (AUTO) 1.9 % (0.0-2.0); EOSINOPHILS % (AUTO) 7.7 % (0.0-3.0); HEMATOCRIT 37.1 % (37.0-47.0); HEMOGLOBIN 12.9 G/DL (12.0-16.0); LYMPHOCYTES % (AUTO) 34.1 % (20.0-45.0); MEAN CORPUSCULAR VOLUME 82 FL (80-99); MONOCYTES % (AUTO) 6.5 % (1.0-10.0); NEUTROPHILS % (AUTO) 49.8 % (45.0-75.0); PLATELET COUNT 566 K/UL (150-450); RED BLOOD COUNT 4.54 M/UL (4.20-5.40); RED CELL DISTRIBUTION WIDTH 11.3 % (11.6-14.8); WHITE BLOOD COUNT 5.8 K/UL (4.8-10.8)
[2019-07-12 08:17] LABS: ANION GAP 10 mmol/L (5-15); BLOOD UREA NITROGEN 3 mg/dL (7-18); CALCIUM 9.2 MG/DL (8.5-10.1); CARBON DIOXIDE 27 MMOL/L (21-32); CHLORIDE 103 MMOL/L (98-107); CREATININE 0.7 MG/DL (0.55-1.30); POTASSIUM 3.1 MMOL/L (3.5-5.1); SODIUM 140 MMOL/L (136-145)
--- NOTE | 2019-07-12 08:40 | NUR ---
NURSE NOTES: Patient alert and oriented,respirations unlabored.Iv fluids infusing.Wound vac to the left knee as ordered.patient ate breakfast.patient voiding witout difficulty.patient is on her menses.Call light within reach.
--- NOTE | 2019-07-12 09:36 | General Progress Note ---
Assessment/Plan Problem List: (1) Substance abuse ICD Codes: F19.10 - Other psychoactive substance abuse, uncomplicated SNOMED: 31478919 (2) Sepsis ICD Codes: A41.9 - Sepsis, unspecified organism SNOMED: [id number] Qualifiers: Qualified Codes: A41.9 - Sepsis, unspecified organism (3) Septic joint of left knee joint ICD Codes: M00.9 - Pyogenic arthritis, unspecified SNOMED: 493432808, [id number] Qualifiers: Qualified Codes: M00.9 - Pyogenic arthritis, unspecified (4) Behavioral change ICD Codes: R46.89 - Other symptoms and signs involving appearance and behavior SNOMED: 030837186 Status: unchanged Assessment/Plan: pain control abx pt diet cbc bmp am Subjective Constitutional: Reports: weakness Allergies: Coded Allergies: DIVALPROEX SODIUM (Verified Allergy, Unknown, 12/24/17) IBUPROFEN (Verified Allergy, Unknown, 12/24/17) TRAMADOL (Verified Allergy, Unknown, 12/24/17) UNABLE TO ASSESS (Unverified , 03/14/18) All Systems: reviewed and negative except above Subjective sl l knee pain Objective Last 24 Hour Vital Signs Date Time Temp Pulse Resp B/P (MAP) Pulse Ox O2 Delivery O2 Flow Rate FiO2 07/12/19 06:13 93 136/96 07/12/19 04:00 97.9 93 18 136/96 (109) 99 07/12/19 01:05 82 144/109 07/12/19 00:00 97.7 82 20 144/109 (121) 99 07/11/19 22:45 152/105 07/11/19 20:11 Room Air 07/11/19 20:00 98.6 108 20 152/105 (121) 99 07/11/19 18:30 150/107 07/11/19 16:00 98.5 86 20 137/95 (109) 98 07/11/19 14:10 151/100 07/11/19 12:00 98.7 94 20 151/100 (117) 98 07/11/19 10:14 124/88 Intake and Output 07/11/19 07/12/19 19:00 07:00 Output Total 25 ml Balance -25 ml Output Drainage Total 25 ml Laboratory Tests 07/12/19 06:34: White Blood Count 5.8, Red Blood Count 4.54, Hemoglobin 12.9, Hematocrit 37.1, Mean Corpuscular Volume 82, Mean Corpuscular Hemoglobin 28.4, Mean Corpuscular Hemoglobin Concent 34.8, Red Cell Distribution Width 11.3L, Platelet Count 566H , Mean Platelet Volume 4.4L, Neutrophils (%) (Auto) 49.8, Lymphocytes (%) (Auto ) 34.1, Monocytes (%) (Auto) 6.5, Eosinophils (%) (Auto) 7.7H, Basophils (%) ( Auto) 1.9, Sodium Level 140, Potassium Level 3.1L, Chloride Level 103, Carbon Dioxide Level 27, Anion Gap 10, Blood Urea Nitrogen 3L, Creatinine 0.7, Estimat Glomerular Filtration Rate > 60, Glucose Level 88, Calcium Level 9.2 Height (Feet): 5 Height (Inches): 2.00 Weight (Pounds): 125 General Appearance: alert EENT: normal ENT inspection Neck: normal alignment Cardiovascular: normal peripheral pulses, normal rate, regular rhythm Respiratory/Chest: chest wall non-tender, lungs clear, normal breath sounds Abdomen: normal bowel sounds, non tender, soft Extremities: normal inspection Edema: no edema noted Arm (L), no edema noted Arm (R), no edema noted Leg (L), no edema noted Leg (R), no edema noted Pedal (L), no edema noted Pedal (R), no edema noted Generalized Neurologic: responsive, motor weakness Skin: normal pigmentation, warm/dry Objective l knee drain in place Anoop Lopez DO Jul 12, 2019 09:36
[2019-07-12] MEDS: Heparin 5000 units/ml inj SUBQ SCH ×2 (10:37→21:06)
[2019-07-12 12:00] VITALS: BP 147/100
--- NOTE | 2019-07-12 12:22 | Surgery Progress Note ---
Surgery Progress Note Subjective Additional Comments No acute events Very anxious about dressing change planned for today Objective Last 24 Hour Vital Signs Date Time Temp Pulse Resp B/P (MAP) Pulse Ox O2 Delivery O2 Flow Rate FiO2 07/12/19 10:34 133/101 07/12/19 06:13 93 136/96 07/12/19 04:00 97.9 93 18 136/96 (109) 99 07/12/19 01:05 82 144/109 07/12/19 00:00 97.7 82 20 144/109 (121) 99 07/11/19 22:45 152/105 07/11/19 20:11 Room Air 07/11/19 20:00 98.6 108 20 152/105 (121) 99 07/11/19 18:30 150/107 07/11/19 16:00 98.5 86 20 137/95 (109) 98 07/11/19 14:10 151/100 I&O Intake and Output 07/11/19 07/12/19 19:00 07:00 Output Total 25 ml Balance -25 ml Output Drainage Total 25 ml Dressing: dry Wound: clean Drains: wound vac Cardiovascular: RSR Respiratory: clear Abdomen: soft, non-tender, present bowel sounds Extremities: no edema, no tenderness, no cyanosis Laboratory Tests Test 07/12/19 06:34 White Blood Count 5.8 K/UL (4.8-10.8) Red Blood Count 4.54 M/UL (4.20-5.40) Hemoglobin 12.9 G/DL (12.0-16.0) Hematocrit 37.1 % (37.0-47.0) Mean Corpuscular Volume 82 FL (80-99) Mean Corpuscular Hemoglobin 28.4 PG (27.0-31.0) Mean Corpuscular Hemoglobin Concent 34.8 G/DL (32.0-36.0) Red Cell Distribution Width 11.3 % (11.6-14.8) L Platelet Count 566 K/UL (150-450) H Mean Platelet Volume 4.4 FL (6.5-10.1) L Neutrophils (%) (Auto) 49.8 % (45.0-75.0) Lymphocytes (%) (Auto) 34.1 % (20.0-45.0) Monocytes (%) (Auto) 6.5 % (1.0-10.0) Eosinophils (%) (Auto) 7.7 % (0.0-3.0) H Basophils (%) (Auto) 1.9 % (0.0-2.0) Sodium Level 140 MMOL/L (136-145) Potassium Level 3.1 MMOL/L (3.5-5.1) L Chloride Level 103 MMOL/L (98-107) Carbon Dioxide Level 27 MMOL/L (21-32) Anion Gap 10 mmol/L (5-15) Blood Urea Nitrogen 3 mg/dL (7-18) L Creatinine 0.7 MG/DL (0.55-1.30) Estimat Glomerular Filtration Rate > 60 mL/min (>60) Glucose Level 88 MG/DL (74-106) Calcium Level 9.2 MG/DL (8.5-10.1) Plan Problems: (1) Septic joint of left knee joint Assessment & Plan: s/p drainage and washout by ortho vac in place with dressings vac output serosang dressings c/d/i (2) Sepsis Assessment & Plan: septic knee s/p washout improving abx as per ID Patient refused reapplication of VAC Wet-to-dry 3 times daily packing and dressing I spent a fair amount of time at bedside explained to patient the goals of care and the care plan. I explained to her the indications for the wound VAC as well as packing and dressing changes the differences and the recommendations. Patient expressed understanding clearly and states that she is well aware of the fact wound can become reinfected if not dressed properly or if proper care is not provided for it but explained very clearly that despite this understanding she does not want any further wound VAC or currently packing. She states she is only okay with dressing and only allows for dressing changes thank you Asif Catalan Jul 12, 2019 12:22
--- NOTE | 2019-07-12 15:21 | Infectious Diseases Prog Note ---
Assessment/Plan Assessment/Plan Assessment: Sepsis L knee septic bursitis 2ry to MRSA- joint seemed to be affected given OR fidnigns and cx negative so far -07/09 SP Left knee prepatellar bursa irrigation and debridement with 6 liters of antibiotic impregnated fluid. Left knee prepatellar bursal wound VAC application. Left knee intraarticular joint aspiration. --FIndings: large purulent draining prepatellar bursa and trace effusion in the intra-articular space. Approximately 12 mL of normal-appearing joint fluid was aspirated.That was sent for culture and sensitivity from the culture and sensitivity from the bursal infection. Decision was made not to perform arthroscopy because of the normal appearing fluid. --Cx bursa: MRSA --intra-articualr and synovial fluid NTD -07/09 Bcx NTD wound cx (superificial): S. aureus 2d ECHO: no vegetations -Xray: Negative for acute fracture. Moderate soft tissue swelling -CXR: No acute findings -ESR 85,CRP 24.4 Afebrile Leukocytosis, SP Drug intoxication -UDS +amphetamine, THC Plan: -Continue empiric IV Vancomycin # / For MRSA knee septic bursitis d/c empiric Cefepime #4 pending cultures -07/09 SP Zosyn x1 -f/u cx -Monitor CBC/CMP, temperatures -f/u OR cx -Ortho f/u -wound care per ortho Thank you for this consultation. Will continue to follow along with you. Discussed with RN Subjective Allergies: Coded Allergies: DIVALPROEX SODIUM (Verified Allergy, Unknown, 12/24/17) IBUPROFEN (Verified Allergy, Unknown, 12/24/17) TRAMADOL (Verified Allergy, Unknown, 12/24/17) UNABLE TO ASSESS (Unverified , 03/14/18) Subjective afebrile wbc improving s/p I+D last night Objective Vital Signs Last 24 Hour Vital Signs Date Time Temp Pulse Resp B/P (MAP) Pulse Ox O2 Delivery O2 Flow Rate FiO2 07/12/19 14:32 131/98 07/12/19 12:00 98.0 108 18 147/100 (116) 07/12/19 10:34 133/101 07/12/19 09:00 Room Air 07/12/19 08:00 98.5 110 18 129/91 (104) 99 07/12/19 06:13 93 136/96 07/12/19 04:00 97.9 93 18 136/96 (109) 99 07/12/19 01:05 82 144/109 07/12/19 00:00 97.7 82 20 144/109 (121) 99 07/11/19 22:45 152/105 07/11/19 20:11 Room Air 07/11/19 20:00 98.6 108 20 152/105 (121) 99 07/11/19 18:30 150/107 07/11/19 16:00 98.5 86 20 137/95 (109) 98 Height (Feet): 5 Height (Inches): 2.00 Weight (Pounds): 125 Objective General: mild distress due to pain: HEENT: no oral lesions Heart: Tachycardic LUngs: CTA x2 Extremities: - Left knee with bandages in place, wound vac in place Microbiology Date/Time Source Procedure Growth Status 07/09/19 21:50 Synovial Fluid Gram Stain - Final Resulted 07/09/19 21:50 Synovial Fluid Body Fluid Culture - Preliminary NO GROWTH AFTER 72 HOURS Resulted 07/09/19 21:50 Knee Left Gram Stain - Final Resulted 07/09/19 21:50 Knee Left Aerobic Culture - Preliminary NO GROWTH AFTER 48 HOURS Resulted 07/09/19 21:50 Knee Left Anaerobic Culture - Preliminary NO GROWTH AFTER 48 HOURS Resulted 07/09/19 21:50 Knee Left Gram Stain - Final Complete 07/09/19 21:50 Aerobic Culture - Final Staphylococcus Aureus - Mrsa Complete 07/09/19 21:50 Knee Left Anaerobic Culture - Final NO ANAEROBES ISOLATED Complete 07/09/19 17:30 Knee Left Gram Stain - Final Complete 07/09/19 17:30 Wound Culture - Final Staphylococcus Aureus - Mrsa Complete Laboratory Tests Test 07/12/19 06:34 07/12/19 12:45 White Blood Count 5.8 K/UL (4.8-10.8) Red Blood Count 4.54 M/UL (4.20-5.40) Hemoglobin 12.9 G/DL (12.0-16.0) Hematocrit 37.1 % (37.0-47.0) Mean Corpuscular Volume 82 FL (80-99) Mean Corpuscular Hemoglobin 28.4 PG (27.0-31.0) Mean Corpuscular Hemoglobin Concent 34.8 G/DL (32.0-36.0) Red Cell Distribution Width 11.3 % (11.6-14.8) L Platelet Count 566 K/UL (150-450) H Mean Platelet Volume 4.4 FL (6.5-10.1) L Neutrophils (%) (Auto) 49.8 % (45.0-75.0) Lymphocytes (%) (Auto) 34.1 % (20.0-45.0) Monocytes (%) (Auto) 6.5 % (1.0-10.0) Eosinophils (%) (Auto) 7.7 % (0.0-3.0) H Basophils (%) (Auto) 1.9 % (0.0-2.0) Sodium Level 140 MMOL/L (136-145) Potassium Level 3.1 MMOL/L (3.5-5.1) L Chloride Level 103 MMOL/L (98-107) Carbon Dioxide Level 27 MMOL/L (21-32) Anion Gap 10 mmol/L (5-15) Blood Urea Nitrogen 3 mg/dL (7-18) L Creatinine 0.7 MG/DL (0.55-1.30) Estimat Glomerular Filtration Rate > 60 mL/min (>60) Glucose Level 88 MG/DL (74-106) Calcium Level 9.2 MG/DL (8.5-10.1) Vancomycin Level Trough 19.3 ug/mL (5.0-12.0) H Current Medications Medications (Trade) Dose Ordered Sig/Hemalatha Route PRN Reason Start Time Stop Time Status Last Admin Dose Admin Cefepime HCl 1 gm/ Dextrose 55 ml @ 110 mls/hr Q12H IVPB 07/10/19 02:30 07/17/19 02:29 07/12/19 04:33 Clonidine HCl (Catapres Tab) 0.1 mg QID ORAL 07/10/19 09:00 08/09/19 01:14 07/12/19 14:32 Diltiazem HCl (Cardizem) 30 mg EVERY 8 HOURS ORAL 07/12/19 00:00 08/11/19 00:00 07/12/19 06:13 Diphenhydramine HCl (Benadryl) 50 mg Q6H PRN ORAL Itching 07/09/19 16:45 08/08/19 16:44 Heparin Sodium (Porcine) (Heparin 5000 units/ml) 5,000 units EVERY 12 HOURS SUBQ 07/09/19 21:00 08/08/19 20:59 07/12/19 10:37 Hydromorphone HCl (Dilaudid) 0.5 mg EVERY 3 HOURS PRN IVP FOR SEVERE PAIN 07/09/19 22:45 07/16/19 22:44 Lorazepam (Ativan 2mg/ml 1ml) 1 mg Q4H PRN IV For Anxiety 07/10/19 01:15 07/17/19 01:14 Lorazepam (Ativan) 1 mg Q6H PRN ORAL For Anxiety 07/09/19 19:00 07/16/19 18:59 Morphine Sulfate (Morphine Sulfate) 2 mg Q4H PRN IVP For Pain 07/09/19 16:45 07/16/19 16:44 Ondansetron HCl (Zofran ODT) 4 mg QID PRN ORAL Nausea & Vomiting 07/09/19 16:45 08/08/19 16:44 Vancomycin HCl (Vanco rx to dose) 1 ea DAILY PRN MISC Per rx protocol 07/09/19 17:45 08/08/19 17:44 Vancomycin/Sodium Chloride 275 ml @ 137.5 mls/ hr Q8HR IVPB 07/11/19 14:00 07/16/19 13:59 07/12/19 14:33 Saumya Moya M.D. Jul 12, 2019 15:21
--- NOTE | 2019-07-12 15:35 | NUR ---
P.T. NOTES S/P: APPROACHED PATIENT'S ROOM IN THE PM. PATIENT FOUND LYING IN A HIGH SEMI-SOTELO'S POSITION IN BED UPON ARRIVAL. PATIENT DEFERRED P.T. TX. TODAY SECONDARY TO MENSTRUAL CYCLE. RN AWARE OF PATIENT'S STATUS. WILL F/U NEXT TX. TIME AND CONT WITH P.T. PLAN. CANDIE
[2019-07-12 16:00] VITALS: BP 131/80
--- NOTE | 2019-07-12 17:04 | NUR ---
CASE MANAGEMENT:REVIEW 07/10/2019 SI;SEPTIC JOINT OF LT KNEE. SEPSIS 99.0 122 14 117/77 98% ON RA WBC 15.8 K+ 3.1 CA 6.9 IS;VANCOMYCIN IV Q8 HRS CEFEPIMEI V Q12 HRS DILAUDID IV Q4 HRS PRN IVF D5 @60 ML/HR MED SURG STATUS CASE MANAGEMENT:REVIEW 07/11/2019 SI;SEPTIC JOINT OF LT KNEE. SEPSIS 98.6 108 20 152/105 99% ON RA K+ 2.5 IS;VANCOMYCIN IV Q8 HRS CEFEPIME IV Q12 HRS DILAUDID IV Q4 HRS PRN K-DUR PO X1 IVF D5 @60 ML/HR MED SURG STATUS CASE MANAGEMENT:REVIEW 07/12/2019 SI;SEPTIC JOINT OF LT KNEE. SEPSIS 98.5 110 18 147/100 99% ON RA K+ 3.1 IS;VANCOMYCIN IV Q8 HRS CEFEPIMEI V Q12 HRS DILAUDID IV Q4 HRS PRN IVF D5 @60 ML/HR K-DUR PO X1 MED SURG STATUS DCP;HOME
--- NOTE | 2019-07-12 18:47 | NUR ---
NURSE NOTES: Patient sitting up in bed,dressing to the left knee intact.No complaints of pain .Patient has visitors.Call light within reach.
--- NOTE | 2019-07-12 19:08 | NUR ---
HAND-OFF: Report given to Leonel DICKERSON.
[2019-07-12 20:00] VITALS: BP 128/84
--- NOTE | 2019-07-12 20:00 | NUR ---
NURSE NOTES: Patient received in bed, awake. No acute distress at this time, visitors at bedside. Will continue plan of care.
--- NOTE | 2019-07-12 21:00 | NUR ---
NURSE NOTES: Linens changed. Patient has menstrual period. Patient was able to ambulate to bathroom with standy assist. Addendum: 07/12/19 at 2239 by NARINDER POLANCO RN RN Dressing changed on left knee. Patient screamed in pain when taking off the gauze packing. She refused for me to pack it again. Wet 4x4 placed just on top of the wound and wrapped with kerlix.
--- NOTE | 2019-07-12 23:45 | Consultation ---
DATE OF CONSULTATION: 07/12/2019 CONSULTING PHYSICIAN: Mehdi Noyola M.D. HISTORY OF PRESENT ILLNESS: This is a 29-year-old female with a history of multiple medical issues including anemia, depression, and anxiety who has been admitted to the hospital due to left septic knee. The patient stated that she is unsure whether she has a diagnosis of anxiety, depression, or bipolar disorder. She is currently on Ativan. She is a poor historian in regards to her past psychiatrist disorder. Denies any suicide attempt. PAST MEDICAL HISTORY: As above. ALLERGIES: Depakote, ibuprofen, tramadol. SUBSTANCE USE HISTORY: She denies any illicit drug use or alcohol; however, her system is positive for amphetamines and marijuana. MENTAL STATUS EXAMINATION: The patient is alert, oriented times self, place, situation, and date. Mood is anxious. She was euphoric. Affect is constricted, congruent with mood. Thought process is linear and goal oriented. Thought content, no suicidal or homicidal ideation. Cognition is intact. Insight and judgment is poor. ASSESSMENT: [place] I Methamphetamine and cannabis abuse. Rule out bipolar disorder. [place] II Deferred. [place] III As above. [place] IV Low. [place] V 50. PLAN: 1. We will start the patient on Remeron. 2. Ativan p.r.n. 3. Discussed with the nurse. Mehdi Noyola M.D. DR: WILBERTO JOB#: [id number] CC: HANNA
--- NOTE | 2019-07-12 23:55 | Cardiology Progress Note ---
Assessment/Plan Assessment/Plan 1. Sinus tachycardia. This is most likely due to amphetamine use and presence of the septic knee in combination. Optimize diltiazem dose, continue hydration and IV ABx therapy. 2. Left knee bursitis, status post debridement. 3. Polysubstance abuse including THC and methamphetamines. Subjective Subjective No cardiac events reported. Denies chest pain or SOB. Objective Last 24 Hour Vital Signs Date Time Temp Pulse Resp B/P (MAP) Pulse Ox O2 Delivery O2 Flow Rate FiO2 07/12/19 21:06 116 128/84 07/12/19 21:06 128/84 07/12/19 21:00 Room Air 07/12/19 20:00 96.1 116 18 128/84 (99) 99 07/12/19 18:41 125/87 07/12/19 16:00 97.5 18 131/80 (97) 99 07/12/19 15:38 98 131/80 07/12/19 14:32 131/98 07/12/19 12:00 98.0 108 18 147/100 (116) 07/12/19 10:34 133/101 07/12/19 09:00 Room Air 07/12/19 08:00 98.5 110 18 129/91 (104) 99 07/12/19 06:13 93 136/96 07/12/19 04:00 97.9 93 18 136/96 (109) 99 07/12/19 01:05 82 144/109 07/12/19 00:00 97.7 82 20 144/109 (121) 99 Intake and Output 07/11/19 07/12/19 19:00 07:00 Output Total 25 ml Balance -25 ml Drainage Total 25 ml 2D Echo: LVEF 55%, small pericardial Eff., RVSP 18 mmHg. Laboratory Tests Test 07/12/19 06:34 07/12/19 12:45 White Blood Count 5.8 K/UL (4.8-10.8) Red Blood Count 4.54 M/UL (4.20-5.40) Hemoglobin 12.9 G/DL (12.0-16.0) Hematocrit 37.1 % (37.0-47.0) Mean Corpuscular Volume 82 FL (80-99) Mean Corpuscular Hemoglobin 28.4 PG (27.0-31.0) Mean Corpuscular Hemoglobin Concent 34.8 G/DL (32.0-36.0) Red Cell Distribution Width 11.3 % (11.6-14.8) L Platelet Count 566 K/UL (150-450) H Mean Platelet Volume 4.4 FL (6.5-10.1) L Neutrophils (%) (Auto) 49.8 % (45.0-75.0) Lymphocytes (%) (Auto) 34.1 % (20.0-45.0) Monocytes (%) (Auto) 6.5 % (1.0-10.0) Eosinophils (%) (Auto) 7.7 % (0.0-3.0) H Basophils (%) (Auto) 1.9 % (0.0-2.0) Sodium Level 140 MMOL/L (136-145) Potassium Level 3.1 MMOL/L (3.5-5.1) L Chloride Level 103 MMOL/L (98-107) Carbon Dioxide Level 27 MMOL/L (21-32) Anion Gap 10 mmol/L (5-15) Blood Urea Nitrogen 3 mg/dL (7-18) L Creatinine 0.7 MG/DL (0.55-1.30) Estimat Glomerular Filtration Rate > 60 mL/min (>60) Glucose Level 88 MG/DL (74-106) Calcium Level 9.2 MG/DL (8.5-10.1) Vancomycin Level Trough 19.3 ug/mL (5.0-12.0) H Objective HEENT: Atraumatic, normocephalic. Anicteric. Pupils are equal, round, and reactive to light and accommodation. Extraocular muscles intact. NECK: JVP less than 5 cm. No carotid bruit. Carotid upstrokes 2+ bilaterally. CARDIOVASCULAR: Normal S1, S2. Regular rate and rhythm. Tachycardic. No murmurs, gallops, or rubs. PMI is at fourth intercostal space in the midclavicular line. LUNGS: Clear to auscultation bilaterally. ABDOMEN: Soft, nontender, and nondistended. No hepatosplenomegaly. Positive bowel sounds. EXTREMITIES: There is a Band-Aid over the left knee, otherwise no pedal edema, clubbing, or cyanosis. Rene Murphy MD Jul 12, 2019 23:55
[2019-07-13] VITALS: BP 130/84
--- NOTE | 2019-07-13 02:30 | Consultation ---
DATE OF CONSULTATION: 07/12/2019 NEPHROLOGY CONSULTATION CONSULTING PHYSICIAN: Katherin Carrera M.D. REFERRING PHYSICIAN: Anoop Lopez D.O. REASON FOR CONSULTATION: Persistent hypokalemia. HISTORY OF PRESENT ILLNESS: The patient is a 29-year-old female with past medical history significant for history of IVDA, who presented to emergency room on 07/08/2019 with swelling of the left knee. The patient was recently started on Zyprexa. She believes that swelling and inflammation of the knee were most likely as a result of that. She denies having any trauma. The patient was found to have persistent hypokalemia on admission and hypomagnesemia. I was called for management of renal disease and electrolyte imbalance. PAST MEDICAL HISTORY: History of psychiatric disease. SOCIAL HISTORY: Positive for history of polysubstance abuse including the THC and methamphetamine. The patient is also homeless. There is no current history of tobacco or alcohol use. FAMILY HISTORY: Negative for any history of kidney disease. HOME MEDICATIONS: None. REVIEW OF SYSTEMS: GENERAL: She complained of generalized weakness. No fever. No chills. No night sweats. HEAD AND NECK: Denies any dysphagia, odynophagia, blurry vision, headache, or neck stiffness. PULMONARY: Denies any shortness of breath. No cough. No sputum. CARDIOVASCULAR: Denies any chest pain or palpitations. GASTROINTESTINAL: Denies any nausea, vomiting, diarrhea, hematemesis, or hematochezia. GENITOURINARY: Denies any dysuria, frequency, hematuria. MUSCULOSKELETAL: Complaining of left knee pain. PHYSICAL EXAMINATION: VITAL SIGNS: The patient has a temperature of 98 degrees, blood pressure of 131/80. HEAD AND NECK: No JVP. No LAD. No thyromegaly. Extraocular moves are intact. Pupils are reactive to light and accommodation. LUNGS: Clear to auscultation. CARDIAC: Regular rate and rhythm. S1 and S2. No murmurs or rubs. ABDOMEN: Soft, nontender, nondistended. EXTREMITIES: Left knee status post . LABORATORY AND DIAGNOSTIC DATA: The patient had WBC count of 5.8, hemoglobin of 12.9, hematocrit of 37, and platelet count of 566. Chemistry reveals sodium of 140, potassium of 2.5 yesterday and today is 3.1, chloride 103, bicarb 27, BUN 3, creatinine of 0.7, and calcium of 9.2. UA revealed specific gravity of 1.010, pH of 6.5, ketones 3+, leukocyte esterase 1+, wbc's 5 to 10. Urine tox is positive for THC and methamphetamine. ASSESSMENT: 1. Persistent hypokalemia. 2. Hypomagnesemia. 3. Bursitis of the left knee. PLAN: Plan for the patient to discontinue the IV fluids. I believe the reason for hypokalemia is urinary loss and I will replace the potassium. I will check the magnesium. I will monitor renal function and electrolytes closely. I will check the urine potassium and urine osmolality to calculate TTKG. At the end, I would like to thank Dr. Anoop Lopez, for allowing me to participate in the care of this patient. Katherin Carrera M.D. DR: Eric JOB#: [id number] CC:
[2019-07-13 05:00] VITALS: BP 137/81
[2019-07-13] MEDS: dilTIAZem HCl 30mg tab ORAL SCH ×3 (05:36→21:06)
[2019-07-13] MEDS: Vancomycin 1.5gm/NS Premix q24h IVPB SCH ×3 (05:36→21:07)
--- NOTE | 2019-07-13 05:49 | NUR ---
NURSE NOTES: Dressing changed again on the left knee wet to dry dressing, still continues to refuse packing. Tolerated well.
--- NOTE | 2019-07-13 07:33 | NUR ---
HAND-OFF: Report given to Lizbeth DICKERSON.
[2019-07-13 08:00] VITALS: BP 122/78
--- NOTE | 2019-07-13 08:00 | NUR ---
NURSE NOTES: Patient sitting up in bed,leftknee dressing intact,left leg elevated on pillows.patient ate breakfast.call light within reach.
[2019-07-13 08:38] LABS: BASOPHILS % (AUTO) 1.1 % (0.0-2.0); EOSINOPHILS % (AUTO) 5.7 % (0.0-3.0); HEMATOCRIT 36.5 % (37.0-47.0); HEMOGLOBIN 12.8 G/DL (12.0-16.0); LYMPHOCYTES % (AUTO) 25.3 % (20.0-45.0); MEAN CORPUSCULAR VOLUME 82 FL (80-99); MONOCYTES % (AUTO) 6.8 % (1.0-10.0); NEUTROPHILS % (AUTO) 61.1 % (45.0-75.0); PLATELET COUNT 613 K/UL (150-450); RED BLOOD COUNT 4.47 M/UL (4.20-5.40); RED CELL DISTRIBUTION WIDTH 11.4 % (11.6-14.8)
[2019-07-13] MEDS: Heparin 5000 units/ml inj SUBQ SCH ×3 (08:48→21:06)
[2019-07-13 08:53] LABS: ANION GAP 13 mmol/L (5-15); BLOOD UREA NITROGEN 10 mg/dL (7-18); CALCIUM 9.2 MG/DL (8.5-10.1); CARBON DIOXIDE 24 MMOL/L (21-32); CHLORIDE 103 MMOL/L (98-107); CREATININE 0.7 MG/DL (0.55-1.30); POTASSIUM 3.7 MMOL/L (3.5-5.1); SODIUM 140 MMOL/L (136-145)
--- NOTE | 2019-07-13 10:11 | Infectious Diseases Prog Note ---
Assessment/Plan Assessment/Plan Assessment: Sepsis L knee septic bursitis 2ry to MRSA- joint seemed to be affected given OR fidnigns and cx negative so far -07/09 SP Left knee prepatellar bursa irrigation and debridement with 6 liters of antibiotic impregnated fluid. Left knee prepatellar bursal wound VAC application. Left knee intraarticular joint aspiration. --FIndings: large purulent draining prepatellar bursa and trace effusion in the intra-articular space. Approximately 12 mL of normal-appearing joint fluid was aspirated.That was sent for culture and sensitivity from the culture and sensitivity from the bursal infection. Decision was made not to perform arthroscopy because of the normal appearing fluid. --Cx bursa: MRSA (S Vancomycin JUSTICE 1, linezolid, bactrim; R tetracyline) --intra-articualr and synovial fluid NTD -07/09 Bcx NTD wound cx (superificial): MRSA 2d ECHO: no vegetations -Xray: Negative for acute fracture. Moderate soft tissue swelling -CXR: No acute findings -ESR 85,CRP 24.4 Afebrile Leukocytosis, SP Drug intoxication -UDS +amphetamine, THC Plan: -Continue empiric IV Vancomycin # For MRSA knee septic bursitis -Upon discharge, can transition to PO Bactrim DS 2 tab bid; patient won't be able to do IV antibiotic at home as living situation is unstable. -2/3 SP Cefepime #4 -07/09 SP Zosyn x1 -f/u cx -Monitor CBC/CMP, temperatures -f/u OR cx -Ortho f/u -wound care per ortho Thank you for this consultation. Will continue to follow along with you. Discussed with RN Subjective Allergies: Coded Allergies: DIVALPROEX SODIUM (Verified Allergy, Unknown, 12/24/17) IBUPROFEN (Verified Allergy, Unknown, 12/24/17) TRAMADOL (Verified Allergy, Unknown, 12/24/17) UNABLE TO ASSESS (Unverified , 03/14/18) Subjective afebrile leukocytosis resolved wound vac removed yesterday Objective Vital Signs Last 24 Hour Vital Signs Date Time Temp Pulse Resp B/P (MAP) Pulse Ox O2 Delivery O2 Flow Rate FiO2 07/13/19 08:50 124/83 07/13/19 05:36 96 137/81 07/13/19 05:00 98.7 96 18 137/81 (99) 99 07/13/19 00:00 96.9 94 20 130/84 (99) 98 07/12/19 21:06 116 128/84 07/12/19 21:06 128/84 07/12/19 21:00 Room Air 07/12/19 20:00 96.1 116 18 128/84 (99) 99 07/12/19 18:41 125/87 07/12/19 16:00 97.5 18 131/80 (97) 99 07/12/19 15:38 98 131/80 07/12/19 14:32 131/98 07/12/19 12:00 98.0 108 18 147/100 (116) 07/12/19 10:34 133/101 Height (Feet): 5 Height (Inches): 2.00 Weight (Pounds): 125 Objective General: mild distress due to pain: HEENT: no oral lesions Heart: Tachycardic LUngs: CTA x2 Extremities: - Left knee with bandages in place, wound vac in place Laboratory Tests Test 07/12/19 12:45 07/13/19 07:40 Vancomycin Level Trough 19.3 ug/mL (5.0-12.0) H White Blood Count 9.0 K/UL (4.8-10.8) # Red Blood Count 4.47 M/UL (4.20-5.40) Hemoglobin 12.8 G/DL (12.0-16.0) Hematocrit 36.5 % (37.0-47.0) L Mean Corpuscular Volume 82 FL (80-99) Mean Corpuscular Hemoglobin 28.6 PG (27.0-31.0) Mean Corpuscular Hemoglobin Concent 35.0 G/DL (32.0-36.0) Red Cell Distribution Width 11.4 % (11.6-14.8) L Platelet Count 613 K/UL (150-450) H Mean Platelet Volume 4.3 FL (6.5-10.1) L Neutrophils (%) (Auto) 61.1 % (45.0-75.0) Lymphocytes (%) (Auto) 25.3 % (20.0-45.0) Monocytes (%) (Auto) 6.8 % (1.0-10.0) Eosinophils (%) (Auto) 5.7 % (0.0-3.0) H Basophils (%) (Auto) 1.1 % (0.0-2.0) Sodium Level 140 MMOL/L (136-145) Potassium Level 3.7 MMOL/L (3.5-5.1) Chloride Level 103 MMOL/L (98-107) Carbon Dioxide Level 24 MMOL/L (21-32) Anion Gap 13 mmol/L (5-15) Blood Urea Nitrogen 10 mg/dL (7-18) Creatinine 0.7 MG/DL (0.55-1.30) Estimat Glomerular Filtration Rate > 60 mL/min (>60) Glucose Level 116 MG/DL (74-106) H Calcium Level 9.2 MG/DL (8.5-10.1) Current Medications Medications (Trade) Dose Ordered Sig/Hemalatha Route PRN Reason Start Time Stop Time Status Last Admin Dose Admin Clonidine HCl (Catapres Tab) 0.1 mg QID ORAL 07/10/19 09:00 08/09/19 01:14 07/13/19 08:50 Diltiazem HCl (Cardizem) 30 mg EVERY 8 HOURS ORAL 07/12/19 00:00 08/11/19 00:00 07/13/19 05:36 Diphenhydramine HCl (Benadryl) 50 mg Q6H PRN ORAL Itching 07/09/19 16:45 08/08/19 16:44 Heparin Sodium (Porcine) (Heparin 5000 units/ml) 5,000 units EVERY 12 HOURS SUBQ 07/09/19 21:00 08/08/19 20:59 07/13/19 08:48 Hydromorphone HCl (Dilaudid) 0.5 mg EVERY 3 HOURS PRN IVP FOR SEVERE PAIN 07/09/19 22:45 07/16/19 22:44 Lorazepam (Ativan 2mg/ml 1ml) 1 mg Q4H PRN IV For Anxiety 07/10/19 01:15 07/17/19 01:14 Lorazepam (Ativan) 1 mg Q6H PRN ORAL For Anxiety 07/09/19 19:00 07/16/19 18:59 Mirtazapine (Remeron) 7.5 mg BEDTIME ORAL 07/12/19 21:00 08/11/19 20:59 07/12/19 21:06 Morphine Sulfate (Morphine Sulfate) 2 mg Q4H PRN IVP For Pain 07/09/19 16:45 07/16/19 16:44 Ondansetron HCl (Zofran ODT) 4 mg QID PRN ORAL Nausea & Vomiting 07/09/19 16:45 08/08/19 16:44 Vancomycin HCl (Vanco rx to dose) 1 ea DAILY PRN MISC Per rx protocol 07/09/19 17:45 08/08/19 17:44 Vancomycin/Sodium Chloride 275 ml @ 137.5 mls/ hr Q8HR IVPB 07/11/19 14:00 07/29/19 23:59 07/13/19 05:36 Saumya Moya M.D. Jul 13, 2019 10:10
[2019-07-13 12:00] VITALS: BP 134/89
--- NOTE | 2019-07-13 13:13 | General Progress Note ---
Assessment/Plan Problem List: (1) Substance abuse ICD Codes: F19.10 - Other psychoactive substance abuse, uncomplicated SNOMED: 00308737 (2) Sepsis ICD Codes: A41.9 - Sepsis, unspecified organism SNOMED: 56385028 Qualifiers: Qualified Codes: A41.9 - Sepsis, unspecified organism (3) Septic joint of left knee joint ICD Codes: M00.9 - Pyogenic arthritis, unspecified SNOMED: 211183761, 27005913 Qualifiers: Qualified Codes: M00.9 - Pyogenic arthritis, unspecified (4) Behavioral change ICD Codes: R46.89 - Other symptoms and signs involving appearance and behavior SNOMED: 764313876 Status: stable, progressing Assessment/Plan: pain control abx pt diet cbc bmp am dc plan Subjective Constitutional: Reports: weakness Allergies: Coded Allergies: DIVALPROEX SODIUM (Verified Allergy, Unknown, 12/24/17) IBUPROFEN (Verified Allergy, Unknown, 12/24/17) TRAMADOL (Verified Allergy, Unknown, 12/24/17) UNABLE TO ASSESS (Unverified , 03/14/18) All Systems: reviewed and negative except above Subjective sl l knee pain Objective Last 24 Hour Vital Signs Date Time Temp Pulse Resp B/P (MAP) Pulse Ox O2 Delivery O2 Flow Rate FiO2 07/13/19 12:00 98.1 18 134/89 (104) 100 07/13/19 09:00 Room Air 07/13/19 08:50 124/83 07/13/19 08:00 97.9 70 20 122/78 (93) 100 07/13/19 05:36 96 137/81 07/13/19 05:00 98.7 96 18 137/81 (99) 99 07/13/19 00:00 96.9 94 20 130/84 (99) 98 07/12/19 21:06 116 128/84 07/12/19 21:06 128/84 07/12/19 21:00 Room Air 07/12/19 20:00 96.1 116 18 128/84 (99) 99 07/12/19 18:41 125/87 07/12/19 16:00 97.5 18 131/80 (97) 99 07/12/19 15:38 98 131/80 07/12/19 14:32 131/98 Intake and Output 07/12/19 07/13/19 18:59 06:59 Intake Total 660 ml 892.5 ml Output Total 300 ml Balance 660 ml 592.5 ml Intake Oral 480 ml 480 ml IV Total 180 ml 412.5 ml Output Urine Total 300 ml # Voids 5 1 Laboratory Tests 07/13/19 07:40: White Blood Count 9.0#, Red Blood Count 4.47, Hemoglobin 12.8, Hematocrit 36.5L , Mean Corpuscular Volume 82, Mean Corpuscular Hemoglobin 28.6, Mean Corpuscular Hemoglobin Concent 35.0, Red Cell Distribution Width 11.4L, Platelet Count 613H, Mean Platelet Volume 4.3L, Neutrophils (%) (Auto) 61.1, Lymphocytes (%) (Auto) 25.3, Monocytes (%) (Auto) 6.8, Eosinophils (%) (Auto) 5.7H, Basophils (%) (Auto) 1.1, Sodium Level 140, Potassium Level 3.7, Chloride Level 103, Carbon Dioxide Level 24, Anion Gap 13, Blood Urea Nitrogen 10, Creatinine 0.7, Estimat Glomerular Filtration Rate > 60, Glucose Level 116H, Calcium Level 9.2 Height (Feet): 5 Height (Inches): 2.00 Weight (Pounds): 125 General Appearance: alert EENT: normal ENT inspection Neck: normal alignment Cardiovascular: normal peripheral pulses, normal rate, regular rhythm Respiratory/Chest: chest wall non-tender, lungs clear, normal breath sounds Abdomen: normal bowel sounds, non tender, soft Extremities: normal inspection Edema: no edema noted Arm (L), no edema noted Arm (R), no edema noted Leg (L), no edema noted Leg (R), no edema noted Pedal (L), no edema noted Pedal (R), no edema noted Generalized Neurologic: responsive, motor weakness Skin: normal pigmentation, warm/dry Objective l knee sl draining Anoop Lopez DO Jul 13, 2019 13:13
--- NOTE | 2019-07-13 13:33 | NUR ---
ARTIST REPRESENTATIVE CONSULT SW received a consult to assess homelessness and home safety evaluation. SW met w/ pt and completed the evaluation. Pt presents as A&O4x, pleasant and cooperative. Pt resides w/ her boyfriend Schuyler Arteaga at [address] [place] [id number]. Pt has no child and receives no income. Emergency contact: Schuyler Arteaga (boyfriend) [phone]. Pt declined to provide additional emergency contact. Pt has hx of Bipolar D/O and denies hx of SI/SA and current SI/SA/HI. Pt denies hx of abuse. RUDS positive for THC and Amphetamine. PT declined counseling/tx intervention/resource on substance abuse. Pt also declined to receive AD resource. Pt states she is ambulatory w/ clutch until she is full recovered, and is independent w/ ADLs. Pt states she will not need any assistance w/ ALDs. Pt plans to return home upon DC. PT does not share any concern/issue/needs at this time. Signed: 07/13/19 at 1338 by APRIL ANGELO <Co-Signature Required>
--- NOTE | 2019-07-13 13:36 | NUR ---
SLING OPERATORRATE MANAGER SI: SEPTIC KNEE T. 98.1 HR 70 RR 18 B/P 134/81 IS: VANCO IV CARDIZEM PO HEPARIN SUBC PLACEMENT PENDING MED/SURG STATUS
--- NOTE | 2019-07-13 13:46 | NUR ---
*-* DISCHARGE PLANNING *-* PATIENT HAS BEEN REFERRED TO: [facility] P: [phone] F: [phone] EFAX: [phone] & [facility] P: [phone] F: [phone] EFAX: [phone]
--- NOTE | 2019-07-13 13:51 | Surgery Progress Note ---
Surgery Progress Note Subjective Additional Comments improving changes dressings on her own now wants to go home soon no n/v/f/c labs okay Objective Last 24 Hour Vital Signs Date Time Temp Pulse Resp B/P (MAP) Pulse Ox O2 Delivery O2 Flow Rate FiO2 07/13/19 13:20 121/76 07/13/19 12:00 98.1 18 134/89 (104) 100 07/13/19 09:00 Room Air 07/13/19 08:50 124/83 07/13/19 08:00 97.9 70 20 122/78 (93) 100 07/13/19 05:36 96 137/81 07/13/19 05:00 98.7 96 18 137/81 (99) 99 07/13/19 00:00 96.9 94 20 130/84 (99) 98 07/12/19 21:06 116 128/84 07/12/19 21:06 128/84 07/12/19 21:00 Room Air 07/12/19 20:00 96.1 116 18 128/84 (99) 99 07/12/19 18:41 125/87 07/12/19 16:00 97.5 18 131/80 (97) 99 07/12/19 15:38 98 131/80 07/12/19 14:32 131/98 I&O Intake and Output 07/12/19 07/13/19 19:00 07:00 Intake Total 660 ml 892.5 ml Output Total 300 ml Balance 660 ml 592.5 ml Intake Oral 480 ml 480 ml IV Total 180 ml 412.5 ml Output Urine Total 300 ml # Voids 5 1 Dressing: saturated Wound: clean Cardiovascular: RSR Respiratory: clear Abdomen: soft, non-tender, present bowel sounds, non-distended Extremities: edema, no tenderness, no cyanosis, other Laboratory Tests Test 07/13/19 07:40 White Blood Count 9.0 K/UL (4.8-10.8) # Red Blood Count 4.47 M/UL (4.20-5.40) Hemoglobin 12.8 G/DL (12.0-16.0) Hematocrit 36.5 % (37.0-47.0) L Mean Corpuscular Volume 82 FL (80-99) Mean Corpuscular Hemoglobin 28.6 PG (27.0-31.0) Mean Corpuscular Hemoglobin Concent 35.0 G/DL (32.0-36.0) Red Cell Distribution Width 11.4 % (11.6-14.8) L Platelet Count 613 K/UL (150-450) H Mean Platelet Volume 4.3 FL (6.5-10.1) L Neutrophils (%) (Auto) 61.1 % (45.0-75.0) Lymphocytes (%) (Auto) 25.3 % (20.0-45.0) Monocytes (%) (Auto) 6.8 % (1.0-10.0) Eosinophils (%) (Auto) 5.7 % (0.0-3.0) H Basophils (%) (Auto) 1.1 % (0.0-2.0) Sodium Level 140 MMOL/L (136-145) Potassium Level 3.7 MMOL/L (3.5-5.1) Chloride Level 103 MMOL/L (98-107) Carbon Dioxide Level 24 MMOL/L (21-32) Anion Gap 13 mmol/L (5-15) Blood Urea Nitrogen 10 mg/dL (7-18) Creatinine 0.7 MG/DL (0.55-1.30) Estimat Glomerular Filtration Rate > 60 mL/min (>60) Glucose Level 116 MG/DL (74-106) H Calcium Level 9.2 MG/DL (8.5-10.1) Plan Problems: (1) Septic joint of left knee joint Assessment & Plan: s/p drainage and washout by ortho vac in place with dressings vac output serosang dressings c/d/i (2) Sepsis Assessment & Plan: septic knee s/p washout improving abx as per ID Patient refused reapplication of VAC Wet-to-dry 3 times daily packing and dressing I spent a fair amount of time at bedside explained to patient the goals of care and the care plan. I explained to her the indications for the wound VAC as well as packing and dressing changes the differences and the recommendations. Patient expressed understanding clearly and states that she is well aware of the fact wound can become reinfected if not dressed properly or if proper care is not provided for it but explained very clearly that despite this understanding she does not want any further wound VAC or currently packing. She states she is only okay with dressing and only allows for dressing changes thank you Additional Comments d/c planning abx as per Asif Rehman Jul 13, 2019 13:51
--- NOTE | 2019-07-13 14:14 | NUR ---
RD ASSESSMENT & RECOMMENDATIONS SEE CARE ACTIVITY FOR COMPLETE ASSESSMENT DAILY ESTIMATED NEEDS: Needs based on sepsis, wound 56.8kg 25-30 kcals/kg 5186-8833 total kcals 1.25-2 g protein/kg 71-114 g total protein 25-30 mL/kg 3861-5774 total fluid mLs NUTRITION DIAGNOSIS: Increased protein needs r/t septic L knee, as evidenced by pt adm w/ L knee prepatellar bursa w/ purulent drainage, s/p washout w/ wound vac, now refusing wound vac. PO DIET RECOMMENDATIONS: regular diet ADDITIONAL RECOMMENDATIONS: 1) Wound care: add GIDEON BID + Vit C 250mg daily + MVI w/ mineral qdaily 2) Add snacks w/current variable po intake 3) Monitor K (2.5*-> now wnl)
[2019-07-13 16:00] VITALS: BP 104/65
--- NOTE | 2019-07-13 18:15 | NUR ---
NURSE NOTES: Dressing changed to the left knee as ordered,patient tolerated.Call light within reach.
--- NOTE | 2019-07-13 19:34 | NUR ---
HAND-OFF: Report given to Leonel DICKERSON.
[2019-07-13 20:00] VITALS: BP 125/62
--- NOTE | 2019-07-13 20:00 | NUR ---
NURSE NOTES: Patient received in bed, awake and alert. No signs of distress. Left knee dressing intact. When discussed about dressing change schedule, patient stated "It was just done. Don't do it again until morning before you leave." Per AM shift, dressing was done late at 6pm. Will continue to monitor.
--- NOTE | 2019-07-13 21:30 | NUR ---
NURSE NOTES: Patient refused heparin shot. Explained importance and indication of medication. Patient verbalized understanding and stated, "I'm a patient and I have the right to refuse treatment." Respected patient's request.
--- NOTE | 2019-07-13 23:20 | Cardiology Progress Note ---
Assessment/Plan Assessment/Plan 1. Sinus tachycardia, resolved, likely due to amphetamine use and presence of the septic knee in combination. Continue diltiazem dose, continue hydration and IV ABx therapy. 2. Left knee bursitis, status post debridement. 3. Polysubstance abuse including THC and methamphetamines. Subjective Subjective No cardiac events reported. Denies chest pain or SOB. Objective Last 24 Hour Vital Signs Date Time Temp Pulse Resp B/P (MAP) Pulse Ox O2 Delivery O2 Flow Rate FiO2 07/13/19 21:06 90 125/62 07/13/19 21:06 125/62 07/13/19 21:00 Room Air 07/13/19 20:00 98.6 91 20 125/62 (83) 99 07/13/19 18:00 95/54 07/13/19 16:00 98.1 107 20 104/65 (78) 98 07/13/19 14:36 110 121/52 07/13/19 13:20 121/76 07/13/19 12:00 98.1 18 134/89 (104) 100 07/13/19 09:00 Room Air 07/13/19 08:50 124/83 07/13/19 08:00 97.9 70 20 122/78 (93) 100 07/13/19 05:36 96 137/81 07/13/19 05:00 98.7 96 18 137/81 (99) 99 07/13/19 00:00 96.9 94 20 130/84 (99) 98 Intake and Output 07/12/19 07/13/19 19:00 07:00 Intake Total 660 ml 1030.0 ml Output Total 300 ml Balance 660 ml 730.0 ml Intake Oral 480 ml 480 ml IV Total 180 ml 550.0 ml Output Urine Total 300 ml # Voids 5 1 2D Echo: LVEF 55%, small pericardial Eff., RVSP 18 mmHg. Laboratory Tests Test 07/13/19 07:40 White Blood Count 9.0 K/UL (4.8-10.8) # Red Blood Count 4.47 M/UL (4.20-5.40) Hemoglobin 12.8 G/DL (12.0-16.0) Hematocrit 36.5 % (37.0-47.0) L Mean Corpuscular Volume 82 FL (80-99) Mean Corpuscular Hemoglobin 28.6 PG (27.0-31.0) Mean Corpuscular Hemoglobin Concent 35.0 G/DL (32.0-36.0) Red Cell Distribution Width 11.4 % (11.6-14.8) L Platelet Count 613 K/UL (150-450) H Mean Platelet Volume 4.3 FL (6.5-10.1) L Neutrophils (%) (Auto) 61.1 % (45.0-75.0) Lymphocytes (%) (Auto) 25.3 % (20.0-45.0) Monocytes (%) (Auto) 6.8 % (1.0-10.0) Eosinophils (%) (Auto) 5.7 % (0.0-3.0) H Basophils (%) (Auto) 1.1 % (0.0-2.0) Sodium Level 140 MMOL/L (136-145) Potassium Level 3.7 MMOL/L (3.5-5.1) Chloride Level 103 MMOL/L (98-107) Carbon Dioxide Level 24 MMOL/L (21-32) Anion Gap 13 mmol/L (5-15) Blood Urea Nitrogen 10 mg/dL (7-18) Creatinine 0.7 MG/DL (0.55-1.30) Estimat Glomerular Filtration Rate > 60 mL/min (>60) Glucose Level 116 MG/DL (74-106) H Calcium Level 9.2 MG/DL (8.5-10.1) Objective HEENT: Atraumatic, normocephalic. Anicteric. Pupils are equal, round, and reactive to light and accommodation. Extraocular muscles intact. NECK: JVP less than 5 cm. No carotid bruit. Carotid upstrokes 2+ bilaterally. CARDIOVASCULAR: Normal S1, S2. Regular rate and rhythm. No murmurs, gallops, or rubs. PMI is at fourth intercostal space in the midclavicular line. LUNGS: Clear to auscultation bilaterally. ABDOMEN: Soft, nontender, and nondistended. No hepatosplenomegaly. Positive bowel sounds. EXTREMITIES: There is a Band-Aid over the left knee, otherwise no pedal edema, clubbing, or cyanosis. Rene Murhpy MD Jul 13, 2019 23:20
[2019-07-14] VITALS: BP 129/86
[2019-07-14 04:30] VITALS: BP 134/83
[2019-07-14] MEDS: dilTIAZem HCl 30mg tab ORAL SCH ×2 (05:21→14:00)
[2019-07-14] MEDS: Vancomycin 1.5gm/NS Premix q24h IVPB SCH ×2 (05:21→14:00)
--- NOTE | 2019-07-14 06:47 | NUR ---
NURSE NOTES: Patient able to change her own left knee with RN supervision and assist. Educated patient and able to return demonstration.
--- NOTE | 2019-07-14 07:18 | NUR ---
HAND-OFF: Report given to Yo DICKERSON.
--- NOTE | 2019-07-14 07:22 | NUR ---
NURSE NOTES: received report from TUAN Castaneda. patient in bed. alert. oriented. verbally responsive. no respiratory distress noted. no pain at this time. IV on RAC20 intact. bed in the lowest position and locked. call light within reach. will continue to provide plan of care.
[2019-07-14 08:00] VITALS: BP 110/63
[2019-07-14 08:21] LABS: BASOPHILS % (AUTO) 1.2 % (0.0-2.0); EOSINOPHILS % (AUTO) 5.3 % (0.0-3.0); HEMATOCRIT 37.9 % (37.0-47.0); HEMOGLOBIN 13.3 G/DL (12.0-16.0); LYMPHOCYTES % (AUTO) 24.6 % (20.0-45.0); MEAN CORPUSCULAR VOLUME 82 FL (80-99); MONOCYTES % (AUTO) 5.7 % (1.0-10.0); NEUTROPHILS % (AUTO) 63.2 % (45.0-75.0); PLATELET COUNT 591 K/UL (150-450); RED BLOOD COUNT 4.62 M/UL (4.20-5.40); RED CELL DISTRIBUTION WIDTH 11.7 % (11.6-14.8); WHITE BLOOD COUNT 9.4 K/UL (4.8-10.8)
[2019-07-14 08:37] LABS: ANION GAP 8 mmol/L (5-15); BLOOD UREA NITROGEN 11 mg/dL (7-18); CALCIUM 9.3 MG/DL (8.5-10.1); CARBON DIOXIDE 27 MMOL/L (21-32); CHLORIDE 105 MMOL/L (98-107); CREATININE 0.6 MG/DL (0.55-1.30); POTASSIUM 3.5 MMOL/L (3.5-5.1); SODIUM 140 MMOL/L (136-145)
[2019-07-14] MEDS: Heparin 5000 units/ml inj SUBQ SCH (09:00)
--- NOTE | 2019-07-14 09:19 | NUR ---
NURSE NOTES: patient refused Clonidine tab PO for HTN, heparin injection. explained risks and benefits. BP 110/63. ambulatory.
--- NOTE | 2019-07-14 10:10 | General Progress Note ---
Assessment/Plan Problem List: (1) Substance abuse ICD Codes: F19.10 - Other psychoactive substance abuse, uncomplicated SNOMED: 66956704 (2) Sepsis ICD Codes: A41.9 - Sepsis, unspecified organism SNOMED: 34546418 Qualifiers: Qualified Codes: A41.9 - Sepsis, unspecified organism (3) Septic joint of left knee joint ICD Codes: M00.9 - Pyogenic arthritis, unspecified SNOMED: 495313361, 86657891 Qualifiers: Qualified Codes: M00.9 - Pyogenic arthritis, unspecified (4) Behavioral change ICD Codes: R46.89 - Other symptoms and signs involving appearance and behavior SNOMED: 427451580 Status: stable, progressing Assessment/Plan: pain control abx pt diet cbc bmp am dc if clear Subjective Constitutional: Reports: weakness Allergies: Coded Allergies: DIVALPROEX SODIUM (Verified Allergy, Unknown, 12/24/17) IBUPROFEN (Verified Allergy, Unknown, 12/24/17) TRAMADOL (Verified Allergy, Unknown, 12/24/17) UNABLE TO ASSESS (Unverified , 03/14/18) All Systems: reviewed and negative except above Subjective sl l knee pain Objective Last 24 Hour Vital Signs Date Time Temp Pulse Resp B/P (MAP) Pulse Ox O2 Delivery O2 Flow Rate FiO2 07/14/19 09:00 Room Air 07/14/19 08:00 97.9 96 18 110/63 (79) 100 07/14/19 05:21 85 134/83 07/14/19 04:30 98.0 85 20 134/83 (100) 97 07/14/19 00:00 98.4 88 20 129/86 (100) 95 07/13/19 21:06 90 125/62 07/13/19 21:06 125/62 07/13/19 21:00 Room Air 07/13/19 20:00 98.6 91 20 125/62 (83) 99 07/13/19 18:00 95/54 07/13/19 16:00 98.1 107 20 104/65 (78) 98 07/13/19 14:36 110 121/52 07/13/19 13:20 121/76 07/13/19 12:00 98.1 18 134/89 (104) 100 Intake and Output 07/13/19 07/14/19 19:00 07:00 Intake Total 737.5 ml 1452.5 ml Balance 737.5 ml 1452.5 ml Intake Oral 600 ml 1040 ml IV Total 137.5 ml 412.5 ml # Voids 2 # Bowel Movements 1 Laboratory Tests 07/14/19 07:35: White Blood Count 9.4, Red Blood Count 4.62, Hemoglobin 13.3, Hematocrit 37.9, Mean Corpuscular Volume 82, Mean Corpuscular Hemoglobin 28.7, Mean Corpuscular Hemoglobin Concent 35.0, Red Cell Distribution Width 11.7, Platelet Count 591H, Mean Platelet Volume 4.4L, Neutrophils (%) (Auto) 63.2, Lymphocytes (%) (Auto) 24.6, Monocytes (%) (Auto) 5.7, Eosinophils (%) (Auto) 5.3H, Basophils (%) (Auto ) 1.2, Sodium Level 140, Potassium Level 3.5, Chloride Level 105, Carbon Dioxide Level 27, Anion Gap 8, Blood Urea Nitrogen 11, Creatinine 0.6, Estimat Glomerular Filtration Rate > 60, Glucose Level 102, Calcium Level 9.3 Height (Feet): 5 Height (Inches): 2.00 Weight (Pounds): 145 General Appearance: alert EENT: normal ENT inspection Neck: normal alignment Cardiovascular: normal peripheral pulses, normal rate, regular rhythm Respiratory/Chest: chest wall non-tender, lungs clear, normal breath sounds Abdomen: normal bowel sounds Extremities: normal inspection Edema: no edema noted Arm (L), no edema noted Arm (R), no edema noted Leg (L), no edema noted Leg (R), no edema noted Pedal (L), no edema noted Pedal (R), no edema noted Generalized Neurologic: responsive, motor weakness Skin: normal pigmentation, warm/dry Objective l knee sl draining LopezAnoop Vega DO Jul 14, 2019 10:10
[2019-07-14 12:00] VITALS: BP 123/85
--- NOTE | 2019-07-14 12:31 | NUR ---
NURSE NOTES: received discharge order from Dr. Lopez. patient can go home with oral ATB by ID. notified Dr. Moya and doctor will send prescription to the [facility].
--- NOTE | 2019-07-14 12:45 | Infectious Diseases Prog Note ---
Assessment/Plan Assessment/Plan Assessment: Sepsis L knee septic bursitis 2ry to MRSA- joint seemed to be affected given OR fidnigns and cx negative so far -07/09 SP Left knee prepatellar bursa irrigation and debridement with 6 liters of antibiotic impregnated fluid. Left knee prepatellar bursal wound VAC application. Left knee intraarticular joint aspiration. --FIndings: large purulent draining prepatellar bursa and trace effusion in the intra-articular space. Approximately 12 mL of normal-appearing joint fluid was aspirated.That was sent for culture and sensitivity from the culture and sensitivity from the bursal infection. Decision was made not to perform arthroscopy because of the normal appearing fluid. --Cx bursa: MRSA (S Vancomycin JUSTICE 1, linezolid, bactrim; R tetracyline) --intra-articualr and synovial fluid NTD -07/09 Bcx NTD wound cx (superificial): MRSA 2d ECHO: no vegetations -Xray: Negative for acute fracture. Moderate soft tissue swelling -CXR: No acute findings -ESR 85,CRP 24.4 Afebrile Leukocytosis, SP Drug intoxication -UDS +amphetamine, THC Plan: -Continue empiric IV Vancomycin # For MRSA knee septic bursitis -Upon discharge, can transition to PO Bactrim DS 2 tab bid; patient won't be able to do IV antibiotic at home as living situation is unstable. -2/3 SP Cefepime #4 -07/09 SP Zosyn x1 -f/u cx -Monitor CBC/CMP, temperatures -f/u OR cx -Ortho f/u -wound care per ortho Thank you for this consultation. Will continue to follow along with you. Discussed with RN Subjective Allergies: Coded Allergies: DIVALPROEX SODIUM (Verified Allergy, Unknown, 12/24/17) IBUPROFEN (Verified Allergy, Unknown, 12/24/17) TRAMADOL (Verified Allergy, Unknown, 12/24/17) UNABLE TO ASSESS (Unverified , 03/14/18) Subjective afebrile no leukocytosis resolved discharge planning Objective Vital Signs Last 24 Hour Vital Signs Date Time Temp Pulse Resp B/P (MAP) Pulse Ox O2 Delivery O2 Flow Rate FiO2 07/14/19 12:00 97.7 94 18 123/85 (98) 98 07/14/19 09:00 Room Air 07/14/19 08:00 97.9 96 18 110/63 (79) 100 07/14/19 05:21 85 134/83 07/14/19 04:30 98.0 85 20 134/83 (100) 97 07/14/19 00:00 98.4 88 20 129/86 (100) 95 07/13/19 21:06 90 125/62 07/13/19 21:06 125/62 07/13/19 21:00 Room Air 07/13/19 20:00 98.6 91 20 125/62 (83) 99 07/13/19 18:00 95/54 07/13/19 16:00 98.1 107 20 104/65 (78) 98 07/13/19 14:36 110 121/52 07/13/19 13:20 121/76 Height (Feet): 5 Height (Inches): 2.00 Weight (Pounds): 145 Objective General: mild distress due to pain: HEENT: no oral lesions Heart: Tachycardic LUngs: CTA x2 Extremities: - Left knee with bandages in place, wound vac in place Laboratory Tests Test 07/14/19 07:35 White Blood Count 9.4 K/UL (4.8-10.8) Red Blood Count 4.62 M/UL (4.20-5.40) Hemoglobin 13.3 G/DL (12.0-16.0) Hematocrit 37.9 % (37.0-47.0) Mean Corpuscular Volume 82 FL (80-99) Mean Corpuscular Hemoglobin 28.7 PG (27.0-31.0) Mean Corpuscular Hemoglobin Concent 35.0 G/DL (32.0-36.0) Red Cell Distribution Width 11.7 % (11.6-14.8) Platelet Count 591 K/UL (150-450) H Mean Platelet Volume 4.4 FL (6.5-10.1) L Neutrophils (%) (Auto) 63.2 % (45.0-75.0) Lymphocytes (%) (Auto) 24.6 % (20.0-45.0) Monocytes (%) (Auto) 5.7 % (1.0-10.0) Eosinophils (%) (Auto) 5.3 % (0.0-3.0) H Basophils (%) (Auto) 1.2 % (0.0-2.0) Sodium Level 140 MMOL/L (136-145) Potassium Level 3.5 MMOL/L (3.5-5.1) Chloride Level 105 MMOL/L (98-107) Carbon Dioxide Level 27 MMOL/L (21-32) Anion Gap 8 mmol/L (5-15) Blood Urea Nitrogen 11 mg/dL (7-18) Creatinine 0.6 MG/DL (0.55-1.30) Estimat Glomerular Filtration Rate > 60 mL/min (>60) Glucose Level 102 MG/DL (74-106) Calcium Level 9.3 MG/DL (8.5-10.1) Current Medications Medications (Trade) Dose Ordered Sig/Hemalatha Route PRN Reason Start Time Stop Time Status Last Admin Dose Admin Clonidine HCl (Catapres Tab) 0.1 mg QID ORAL 07/10/19 09:00 08/09/19 01:14 07/13/19 21:06 Diltiazem HCl (Cardizem) 30 mg EVERY 8 HOURS ORAL 07/12/19 00:00 08/11/19 00:00 07/14/19 05:21 Diphenhydramine HCl (Benadryl) 50 mg Q6H PRN ORAL Itching 07/09/19 16:45 08/08/19 16:44 Heparin Sodium (Porcine) (Heparin 5000 units/ml) 5,000 units EVERY 12 HOURS SUBQ 07/09/19 21:00 08/08/19 20:59 07/13/19 08:48 Hydromorphone HCl (Dilaudid) 0.5 mg EVERY 3 HOURS PRN IVP FOR SEVERE PAIN 07/09/19 22:45 07/16/19 22:44 Lorazepam (Ativan 2mg/ml 1ml) 1 mg Q4H PRN IV For Anxiety 07/10/19 01:15 07/17/19 01:14 Lorazepam (Ativan) 1 mg Q6H PRN ORAL For Anxiety 07/09/19 19:00 07/16/19 18:59 Mirtazapine (Remeron) 7.5 mg BEDTIME ORAL 07/12/19 21:00 08/11/19 20:59 07/13/19 21:06 Morphine Sulfate (Morphine Sulfate) 2 mg Q4H PRN IVP For Pain 07/09/19 16:45 07/16/19 16:44 Ondansetron HCl (Zofran ODT) 4 mg QID PRN ORAL Nausea & Vomiting 07/09/19 16:45 08/08/19 16:44 Vancomycin HCl (Vanco rx to dose) 1 ea DAILY PRN MISC Per rx protocol 07/09/19 17:45 08/08/19 17:44 Vancomycin/Sodium Chloride 275 ml @ 137.5 mls/ hr Q8HR IVPB 07/11/19 14:00 07/29/19 23:59 07/14/19 05:21 Saumya Moya M.D. Jul 14, 2019 12:45
--- NOTE | 2019-07-14 14:41 | NUR ---
NURSE NOTES: patient refused clonidine PO for HTN. vancomycin IV d/t discharge home soon.
--- NOTE | 2019-07-14 15:12 | Surgery Progress Note ---
Surgery Progress Note Subjective Symptoms: improved, tolerating diet, voiding well, passing flatus, BM, pain decreased Objective Last 24 Hour Vital Signs Date Time Temp Pulse Resp B/P (MAP) Pulse Ox O2 Delivery O2 Flow Rate FiO2 07/14/19 12:00 97.7 94 18 123/85 (98) 98 07/14/19 09:00 Room Air 07/14/19 08:00 97.9 96 18 110/63 (79) 100 07/14/19 05:21 85 134/83 07/14/19 04:30 98.0 85 20 134/83 (100) 97 07/14/19 00:00 98.4 88 20 129/86 (100) 95 07/13/19 21:06 90 125/62 07/13/19 21:06 125/62 07/13/19 21:00 Room Air 07/13/19 20:00 98.6 91 20 125/62 (83) 99 07/13/19 18:00 95/54 07/13/19 16:00 98.1 107 20 104/65 (78) 98 I&O Intake and Output 07/13/19 07/14/19 19:00 07:00 Intake Total 737.5 ml 1452.5 ml Balance 737.5 ml 1452.5 ml Intake Oral 600 ml 1040 ml IV Total 137.5 ml 412.5 ml # Voids 2 # Bowel Movements 1 Dressing: dry Wound: clean Cardiovascular: RSR Respiratory: clear Abdomen: soft, flat, non-tender, present bowel sounds Extremities: edema, tenderness, no cyanosis, pulses, other Laboratory Tests Test 07/14/19 07:35 White Blood Count 9.4 K/UL (4.8-10.8) Red Blood Count 4.62 M/UL (4.20-5.40) Hemoglobin 13.3 G/DL (12.0-16.0) Hematocrit 37.9 % (37.0-47.0) Mean Corpuscular Volume 82 FL (80-99) Mean Corpuscular Hemoglobin 28.7 PG (27.0-31.0) Mean Corpuscular Hemoglobin Concent 35.0 G/DL (32.0-36.0) Red Cell Distribution Width 11.7 % (11.6-14.8) Platelet Count 591 K/UL (150-450) H Mean Platelet Volume 4.4 FL (6.5-10.1) L Neutrophils (%) (Auto) 63.2 % (45.0-75.0) Lymphocytes (%) (Auto) 24.6 % (20.0-45.0) Monocytes (%) (Auto) 5.7 % (1.0-10.0) Eosinophils (%) (Auto) 5.3 % (0.0-3.0) H Basophils (%) (Auto) 1.2 % (0.0-2.0) Sodium Level 140 MMOL/L (136-145) Potassium Level 3.5 MMOL/L (3.5-5.1) Chloride Level 105 MMOL/L (98-107) Carbon Dioxide Level 27 MMOL/L (21-32) Anion Gap 8 mmol/L (5-15) Blood Urea Nitrogen 11 mg/dL (7-18) Creatinine 0.6 MG/DL (0.55-1.30) Estimat Glomerular Filtration Rate > 60 mL/min (>60) Glucose Level 102 MG/DL (74-106) Calcium Level 9.3 MG/DL (8.5-10.1) Plan Problems: (1) Septic joint of left knee joint Assessment & Plan: s/p drainage and washout by ortho vac in place with dressings vac output serosang dressings c/d/i (2) Sepsis Assessment & Plan: septic knee s/p washout improving abx as per ID Patient refused reapplication of VAC Wet-to-dry 3 times daily packing and dressing I spent a fair amount of time at bedside explained to patient the goals of care and the care plan. I explained to her the indications for the wound VAC as well as packing and dressing changes the differences and the recommendations. Patient expressed understanding clearly and states that she is well aware of the fact wound can become reinfected if not dressed properly or if proper care is not provided for it but explained very clearly that despite this understanding she does not want any further wound VAC or currently packing. She states she is only okay with dressing and only allows for dressing changes thank you d/c planning outpatient f/u with ortho oral abx as per ID Asif Catalan Jul 14, 2019 15:12
--- NOTE | 2019-07-14 15:50 | NUR ---
NURSE NOTES: patient discharged to home accompanied by friends with fair condition. A&O x 4, verbally responsive. no respiratory distress noted. mild discomfort on left knee. dressing intact and dry. educated patient how to change dressing and care at home. patient verbalized understood. provided dc packet and educated medications administration at home. checked and counted belongings with patient. obtained sign. removed IV and ID upon discharge. PO ATB was delivered from [facility] pharmacy. provided FWW for safety upon discharge.
--- NOTE | 2019-07-14 23:10 | Psych Consult Progress Note ---
Psychiatry Progress Note Psychiatry Progress Note Subjective lert, oriented times self, place, situation, and date. Mood is anxious. She was euphoric. Affect is constricted, congruent with mood. Thought process is linear and goal oriented. Thought content, no suicidal or homicidal ideation. Cognition is intact. Insight and judgment is poor. Neurological/Psychiatric: Reports: anxiety, depressed, emotional problems Allergies: Coded Allergies: DIVALPROEX SODIUM (Verified Allergy, Unknown, 12/24/17) IBUPROFEN (Verified Allergy, Unknown, 12/24/17) TRAMADOL (Verified Allergy, Unknown, 12/24/17) UNABLE TO ASSESS (Unverified , 03/14/18) Objective Data Height (Feet): 5 Height (Inches): 2.00 Weight (Pounds): 145 Assessment/Plan Status: stable, progressing Assessment/Plan: ASSESSMENT: Wallis I Methamphetamine and cannabis abuse. Rule out bipolar disorder. Wallis II Deferred. Wallis III As above. Wallis IV Low. Wallis V 50. PLAN: 1. We will start the patient on Remeron. 2. Ativan p.r.n. 3. Discussed with the nurse. Mehdi Noyola MD Jul 14, 2019 23:10
--- NOTE | 2019-07-15 12:09 | Discharge Summary ---
Discharge Summary Discharge Summary _ DATE OF ADMISSION: 07/09/2019 DATE OF DISCHARGE: 07/14/2019 DISCHARGED BY: Dr. Lopez REASON FOR ADMISSION: 29 years old female with past medical history of depression ,anxiety ,substance abuse, possible bipolar disorder, presented with complaint of left knee swelling for few days. She denied any trauma or injury to the knee . She reported fever and chills. She was unable to do weightbearing at this time. Upon evaluation patient was afebrile , but significantly tachycardic with heart rate 148 and tachypneic with respiratory rate 24. Laboratory work-up revealed leukocytosis WBC 20.7 ,hemoglobin 12.8, hematocrit 36.9 ,platelet count 437. Urine toxicology screen was positive for amphetamine and marijuana. Urine test was negative. Potassium 3.3. Stable other electrolytes and renal parameters. Stable LFT. Troponin negative .EKG revealed sinus tachycardia , no acute ischemic changes . Lactic acid 1.3. Chest x-ray revealed no acute cardiopulmonary pathology. X-ray of the left knee revealed no evidence of acute fracture. Moderate soft tissue swelling. Patient subsequently admitted for further management. CONSULTANTS: cone picker Dr. Murphy ID specialist Dr. Moay orthopedic surgeon Dr. Rojas papeterie table assembler Dr. Carrera psychiatrist [facility] COURSE: Patient admitted to medical surgical floor. Orthopedic surgeon seen and evaluated patient . Patient undergone left knee prepatellar bursa irrigation and debridement with wound VAC application, and intra-articular joint aspiration. Pain management was addressed as needed. Patient was continued on empiric antibiotics. Blood cultures were negative. Wound culture revealed MRSA. Culture of bursa showed MRSA. Echocardiogram revealed no evidence of vegetation. ESR 85 . CRP 24.4. Leukocytosis resolved . Patient remained febrile. Per ID specialist , patient will require 21 days of antibiotic for MRSA knee septic bursitis. Upon discharge patient was change to oral Bactrim to complete the course . Surgeon followed for wound VAC. VAC output was closely monitored with plan to change dressing every 2 to 3 days. Patient later refused reapplication of the Vac. Surgeon recommended wet-to-dry dressing with 3 times daily packing . Patient was explained the rationale for a wound VAC ,but patient declined further wound VAC. Nursing Staffing Coordinator followed. Patient had initially sinus tachycardia, which resolved, and likely was due to amphetamine use in combination with presence of the septic knee . Diltiazem continued. Echocardiogram revealed preserved ejection fraction 55 to 60% with no evidence of wall motion abnormality. Right ventricular systolic pressure of 18. Patient was on the IV hydration. DVT prophylaxis with heparin continued. Renal parameters and electrolytes were closely monitored. Electrolytes /potassium and magnesium replaced. Psychiatrist started patient on Remeron. Supportive therapy provided. Patient clinically stabilized and was ready for discharge. Patient was instructed on wound care. Supplies provided. Patient was provided with antibiotics , delivered from [facility] pharmacy to complete the course at home. FINAL DIAGNOSES: Sepsis Left knee prepatellar septic bursitis due to MRSA Status post left knee prepatellar bursa irrigation and debridement , left knee prepatellar bursal wound VAC application, left knee intra-articular joint aspiration Substance abuse/amphetamine, THC Hypokalemia Hypomagnesemia Sinus tachycardia-resolved DISCHARGE MEDICATIONS: See Medication Reconciliation list. DISCHARGE INSTRUCTIONS: Patient was discharged home I have been assigned to dictate discharge summary for this account. I was not involved in the patient's management. Nubia Chowdhury NP Jul 15, 2019 12:09
== END 2019-07-14 16:00 | disposition home or self-care (01) | DRG 854 ==
LOC: EMR 13:50 → 3E 13:59 → EDBEDREQ 15:00 → 4E 07-11 17:15
PROC: 0S9D3ZX Drainage of Left Knee Joint, Percutaneous Approach, Diagnostic (ICD-10-PCS; principal; 2019-07-09 21:00)
PROC: 0MCP0ZZ Extirpation of Matter from Left Knee Bursa and Ligament, Open Approach (ICD-10-PCS; principal; 2019-07-09 21:00)
DX: A41.9 Sepsis, unspecified organism (principal); N39.0 Urinary tract infection, site not specified; M00.062 Staphylococcal arthritis, left knee; M70.52 Other bursitis of knee, left knee; D64.9 Anemia, unspecified; B95.62 Methicillin resistant Staphylococcus aureus infection as the cause of diseases classified elsewhere; F15.10 Other stimulant abuse, uncomplicated; F12.10 Cannabis abuse, uncomplicated; E87.6 Hypokalemia; E83.42 Hypomagnesemia; Z88.6 Allergy status to analgesic agent; Z88.8 Allergy status to other drugs, medicaments and biological substances; Z59.0 Homelessness
CPT/HCPCS: 36415; 71045; 80048; 80053; 80202; 80307; 81003; 81025; 82550; 83605; 83735; 84484; 85007; 85025; 85610; 85651; 85730; 86140; 86850; 86900; 86901; 87040; 87070; 87075; 87081; 87181; 87205; 89050; 89060; 93005; 93306; 94003; 94150; 96361; 96365; 96367; 96375; 99285; J2765; J7030; J8499